=== PATIENT | female | born 1950 | race Caucasian/White ===

== ENCOUNTER 2016-05-15 11:36 | Emergency (ER) | payer MEDICARE, BC ==
[2016-05-15] MEDS ORDERED: HYDROcodone 10MG/APAP 325MG 1 EA TAB PO ONE (12:08)
[2016-05-15] MEDS ORDERED: KETOROLAC TROMETHAMINE INJ 60 MG/2 ML VIAL IM ONE (12:08)
--- NOTE | 2016-05-15 12:55 | ED.PDOC ---
History of Present Illness - General Chief Complaint: Lower Extremity Injury Stated Complaint: left hip pain Time Seen by Provider: 05/15/16 12:04 Source: patient Exam Limitations: no limitations - History of Present Illness Initial Comments: PT REPORTS SUDDEN ONSET OF L HIP PAIN UPON STANDING UP FROM A CHAIR YESTERDAY. PT REPORTS SHE IMMEDIATELY SAT BACK DOWN AND STOOD UP SLOWLY. PAIN HAD RESOLVED , HOWEVER IT BEGAN TO RETURN THROUGHOUT THE EVENING. PT REPORTS TAKING NORCO AT HOME LAST NIGHT. DENIES ANY SWELLING OR PAIN OF CALF OR THIGH. Occurred: yesterday Pain - Lower Extremity: moderate: Left Thigh/Hip Method of Injury: other - STANDING UP Improving Factors: rest Worsening Factors: movement Allergies/Adverse Reactions: Allergies Cephalexin [From Keflex] Allergy (Verified 05/15/16 11:53) Levofloxacin [From Levaquin] Allergy (Verified 05/15/16 11:53) Sulfamethoxazole w/Trimethoprim [From Bactrim] Allergy (Verified 05/15/16 11:53) Tramadol [From Ultram] Allergy (Verified 05/15/16 11:53) Home Medications: Ambulatory Orders Celecoxib [CeleBREX] 200 mg PO DAILY 05/15/16 Cholecalciferol [Vitamin D3] 5,000 unit PO DAILY 05/15/16 Eletriptan Hydrobromide [Relpax] 20 mg PO PRN 05/15/16 Fiber [Advanced Fiber Complex/AC] 3 cap PO BEDTIME 05/15/16 HYDROcodone 5MG/APAP 325MG [Wellman 5/325] 0.5 tab PO Q6H PRN 05/15/16 Magnesium 250 mg PO BEDTIME 05/15/16 Metaxalone 400 mg PO PRN 05/15/16 Niacin [Niacin ER] 500 mg PO BID 05/15/16 Oxcarbazepine [Trileptal] 150 mg PO BID 05/15/16 Valsartan 160 mg PO DAILY 05/15/16 amLODIPine BESYLATE [Norvasc] 5 mg PO BEDTIME 05/15/16 Review of Systems - Review of Systems Constitutional: States: chills, fever EENTM: States: no symptoms reported Respiratory: States: cough, short of breath Cardiology: States: chest pain, palpitations Gastrointestinal/Abdominal: States: no symptoms reported Genitourinary: States: no symptoms reported Musculoskeletal: States: joint pain Skin: Denies: change in color, lesions Hematologic/Lymphatic: Denies: blood clots, easy bruising Past Medical History (General) - Patient Medical History Hx Hypertension: Yes Hx Other - free text: ARTHRITIS, CHRONIC KNEE, BACK PAIN - Vaccination History Hx Influenza Vaccination: Yes Hx Pneumococcal Vaccination: Yes - Social History Hx Tobacco Use: No Family Medical History - Family History Mother Family History: Unknown Living Status: Unknown Physical Exam - Physical Exam General Appearance: Alert, No apparent distress Eyes, Ears, Nose, Throat: PERRL/EOMI, normal ENT inspection Thigh/Hip: normal inspection, non-tender, normal ROM Leg: normal inspection, non-tender Knee: normal inspection, non-tender Ankle: normal inspection, non-tender Foot: normal inspection, non-tender Neuro/Tendon: normal sensation Mental Status: alert, oriented x 3 Skin: normal color, warm/dry Progress - Progress Progress: 05/15/16 13:40 PT REPORTS SIGNIFICANT IMPROVEMENT IN PAIN AFTER IM TORADOL AND NORCO. XRAY FINDINGS REVIEWED WITH PT. BASED ON CLINICAL PRESENTATION I SUSPECT L HIP SPRAIN. PT WILL FOLLOW UP WITH PCP AND TAKE PAIN MEDS PRESCRIBED. Departure - Departure Clinical Impression: Sprain of hip Time of Disposition: 13:42 Disposition: Discharge to Home or Self Care Condition: Good Departure Forms: ED Discharge - Pt. Copy, Patient Portal Self Enrollment Instructions: Help for Hip Pain Diet: resume usual diet Referrals: Roberth Zaidi MD [Primary Care Provider] - 1-2 Weeks Home Medications: Ambulatory Orders Celecoxib [CeleBREX] 200 mg PO DAILY 05/15/16 Cholecalciferol [Vitamin D3] 5,000 unit PO DAILY 05/15/16 Eletriptan Hydrobromide [Relpax] 20 mg PO PRN 05/15/16 Fiber [Advanced Fiber Complex/AC] 3 cap PO BEDTIME 05/15/16 HYDROcodone 5MG/APAP 325MG [Wellman 5/325] 0.5 tab PO Q6H PRN 05/15/16 Magnesium 250 mg PO BEDTIME 05/15/16 Metaxalone 400 mg PO PRN 05/15/16 Niacin [Niacin ER] 500 mg PO BID 05/15/16 Oxcarbazepine [Trileptal] 150 mg PO BID 05/15/16 Valsartan 160 mg PO DAILY 05/15/16 amLODIPine BESYLATE [Norvasc] 5 mg PO BEDTIME 05/15/16
--- NOTE | 2016-05-15 13:22 | RAD ---
EXAM DESCRIPTION: XR HIP 2 OR MORE VIEWS CLINICAL HISTORY: L HIP PAIN COMPARISON: None Available. TECHNIQUE: AP/frog leg lateral FINDINGS: There is no bone, joint, or soft tissue abnormality. IMPRESSION: Normal left hip Electronically signed by: Conrado Monae MD 05/15/2016 13:21
--- NOTE | 2016-05-15 13:23 | RAD ---
EXAM DESCRIPTION: XR PELVIS 1-2 VIEWS CLINICAL HISTORY: LEFT HIP PAIN COMPARISON: None Available. TECHNIQUE: AP pelvis FINDINGS: There is no bone, joint, or soft tissue abnormality. IMPRESSION: Normal pelvis Electronically signed by: Conrado Monae MD 05/15/2016 13:22
[2016-05-15 13:54] VITALS: BP 133/63; TEMP 97.1; O2SAT 98
== END 2016-05-15 13:52 | disposition home or self-care (01) ==
LOC: ER 11:36
DX: S73.109A Unspecified sprain of unspecified hip, initial encounter (principal); I10 Essential (primary) hypertension; G89.29 Other chronic pain; M54.9 Dorsalgia, unspecified; M25.569 Pain in unspecified knee; M19.90 Unspecified osteoarthritis, unspecified site; Z88.2 Allergy status to sulfonamides; Z88.6 Allergy status to analgesic agent; Z88.3 Allergy status to other anti-infective agents; Z79.899 Other long term (current) drug therapy; X58.XXXA Exposure to other specified factors, initial encounter
CPT/HCPCS: 72170; 73502; J1885

== ENCOUNTER → 2016-06-13 | Outpatient (CLI) | payer MEDICARE, BC ==
--- NOTE | 2016-06-15 11:36 | MRI ---
EXAM DESCRIPTION: MR LUMBAR SPINE WITHOUT IV CONTRAST CLINICAL HISTORY: 66 y/o F, SPINAL STENOSIS COMPARISON: September 13, 2015 TECHNIQUE: Multi planar, multi sequence imaging of the lumbar spine was acquired without IV contrast. FINDINGS: There is grade 1 anterolisthesis of L2 on L3 and L3 on L4. Disc desiccation noted at all levels with intervertebral disc height loss at all levels except L5-S1. The conus terminates at L1-L2. It appears unremarkable. L1-L2: Circumferential 3 mm disc bulge. Facet degeneration noted. No spinal canal or neural foraminal narrowing. L2-3: Moderate facet degeneration, ligamentum flavum thickening and a 4 mm circumferential disk osteophyte complex. The midline diameter of spinal canal is narrowed to 7.7 mm. Bilateral neural foramen are mildly narrowed. L3-4: Facet degeneration, ligamentum flavum thickening and unroofing of the intervertebral disc are noted. The AP diameter spinal canal is moderately stenotic at 7 mm. Mild bilateral neural foraminal narrowing noted. L4-5: Facet degeneration, ligamentum flavum thickening and a 3 mm circumferential disk osteophyte complex. The midline diameter of the spinal canal is adequate at 12 mm. Bilateral neural foramen are mildly narrowed. L5-S1: Mild facet degeneration. The midline diameter of the spinal canal is widely patent measuring 1.6 cm. Bilateral neural foramen are likely adequate. IMPRESSION: Today's exam demonstrates multilevel facet and disc disease. This is most pronounced at L2-3 and L3-4 in which there is moderate bilateral facet degeneration resulting in grade 1 anterolisthesis at both levels. In addition to the anterolisthesis at both levels there is moderate spinal canal narrowing. These findings are similar when compared to the prior study from 2015. Multilevel neural foraminal narrowing, but no exiting nerve root contact. Electronically signed by: Eugene Oliveira MD 06/15/2016 11:34
== END | disposition home or self-care (01) ==
LOC: MRI 13:09
PROVIDERS: ATTEND Family Medicine
DX: M48.06 Spinal stenosis, lumbar region (principal)

== ENCOUNTER → 2016-07-15 | Outpatient (CLI) | payer MEDICARE, BC | END | disposition home or self-care (01) | LOC: GMAM 10:59 | PROVIDERS: ATTEND Family Medicine | DX: I10 Essential (primary) hypertension (principal); Z01.810 Encounter for preprocedural cardiovascular examination ==

== ENCOUNTER → 2016-10-28 | Outpatient (CLI) | payer MEDICARE, BC | LOC: GMAM 18:26 | PROVIDERS: ATTEND Family Medicine | DX: R30.0 Dysuria (principal) ==

== ENCOUNTER 2016-12-22 05:45 | Day surgery (SDC) | payer MEDICARE, BC ==
[2016-12-22] MEDS ORDERED: LACTATED RINGERS 1,000 ML ONE (06:53)
[2016-12-22] MEDS ORDERED: fentaNYL CITRATE INJ 50 MCG/ML AMP ONE (08:02)
[2016-12-22] MEDS ORDERED: MIDAZOLAM INJ 5 MG/5 ML VIAL ONE (08:02)
--- NOTE | 2016-12-22 09:17 | OP ---
DATE OF PROCEDURE: 12/22/16 INDICATION: Greater than ten years since last colonoscopy and age greater than 50. POSTOPERATIVE DIAGNOSIS: 1. Colonoscopy completed to the cecum. Ileocecal valve visualized, but not cannulated, with fair prep, but adequate for visualization. 2. Occasional scattered diverticula in the sigmoid colon. 3. Otherwise, normal colonoscopy. PROCEDURE: 1. Colonoscopy. SURGEON: Roberth Zaidi MD ANESTHESIA: Per Farooq Chamberlain CRNA. COMPLICATIONS: None apparent. ESTIMATED BLOOD LOSS: None. TECHNIQUE: The patient was brought to the GI lab and laid in the left lateral decubitus position. Digital rectal exam was performed and found to be normal. The colonoscope was inserted into the rectum and slowly through to the cecum. The cecum was well visualized. The ileocecal valve was visualized, but not cannulated. There was a fairly large amount of fecal material there, but it was loose and liquidy and was suctioned with adequate visualization following extensive suctioning. The scope was then withdrawn slowly through the ascending colon into the transverse colon, all of which appeared normal, down through the descending colon, which also appeared normal. In the sigmoid colon , there were occasional diverticula, but otherwise normal. The scope was withdrawn on into the rectum. In the rectum, retroflexion was attempted, but unsuccessfully. The scope was withdrawn very slowly with very good visualization of the rectum achieved. The patient tolerated the procedure well. There were no obvious complications. The patient will return to her room where she will recover until she is cleared from an anesthesia standpoint, then she will be discharged home. She will followup with me in one week. #[id number] [facility]ITALJustin
[2016-12-22 10:25] VITALS: BP 124/71; TEMP 98.2; O2SAT 98
[2016-12-22] MEDS ORDERED: LIDOCAINE 1% 10 ML VIAL INJ ONE (12:00)
[2016-12-22] MEDS ORDERED: PROPOFOL 200 MG/20 ML VIAL IV ONE (12:00)
== END 2016-12-22 10:00 | disposition home or self-care (01) ==
LOC: AMB 05:45
PROVIDERS: ATTEND Family Medicine
DX: Z12.11 Encounter for screening for malignant neoplasm of colon (principal); K57.30 Diverticulosis of large intestine without perforation or abscess without bleeding; I10 Essential (primary) hypertension; E78.2 Mixed hyperlipidemia; M54.5 Low back pain; M85.80 Other specified disorders of bone density and structure, unspecified site; M48.06 Spinal stenosis, lumbar region; R30.0 Dysuria; R53.83 Other fatigue; I34.0 Nonrheumatic mitral (valve) insufficiency; G43.909 Migraine, unspecified, not intractable, without status migrainosus; G25.0 Essential tremor; Z88.1 Allergy status to other antibiotic agents; Z88.6 Allergy status to analgesic agent; Z88.2 Allergy status to sulfonamides; Z88.8 Allergy status to other drugs, medicaments and biological substances; Z79.899 Other long term (current) drug therapy
CPT/HCPCS: 00810; G0121; J2250; J3010; J3490; J7120

== ENCOUNTER 2017-06-16 11:08 | Emergency (ER) | payer BC, MEDICARE ==
--- NOTE | 2017-06-16 11:31 | ED.PDOC ---
History of Present Illness - General Chief Complaint: Chest Pain/AR Stated Complaint: chest pain Time Seen by Provider: 06/16/17 11:30 Source: patient Exam Limitations: no limitations - History of Present Illness Initial Comments: Antonette Chu 67 y/o female came to er with right axillary sharp chest pains that goes on to her right chest which had been constant when it started this aabout 4 hours ago not going away decide to come to ER.Stated she was treated for flu like symptoms 3 weeks ago but dry cough still lingers no fever/no chills. Timing/Duration: 4-6 hours Severity: moderate Location: other - right side Activities at Onset: rest Prior Chest Pain/Cardiac Workup: no prior chest pain Worsening Factors: nothing Nitro Today/Relief: no nitro taken today, 0.4 mg x 1 Aspirin Treatment Today: 81 mg x 4 Associated Symptoms: cough Allergies/Adverse Reactions: Allergies Cephalexin [From Keflex] Allergy (Verified 06/16/17 11:40) Levofloxacin [From Levaquin] Allergy (Verified 06/16/17 11:40) Sulfamethoxazole w/Trimethoprim [From Bactrim] Allergy (Verified 06/16/17 11:40) Home Medications: Ambulatory Orders Celecoxib [CeleBREX] 200 mg PO BEDTIME 05/15/16 Cholecalciferol [Vitamin D3] 5,000 unit PO BID 05/15/16 Fiber [Advanced Fiber Complex/AC] 2 cap PO BEDTIME 05/15/16 Metaxalone 400 mg PO PRN 05/15/16 Niacin [Niacin ER] 500 mg PO BID 05/15/16 Oxcarbazepine [Trileptal] 150 mg PO BID 05/15/16 Amlodipine Besylate 5 mg PO BEDTIME 12/19/16 Tramadol HCl [Ultram] 200 mg PO TID 12/19/16 Valsartan [Diovan] 160 mg PO DAILY 12/19/16 Review of Systems - Review of Systems Constitutional: States: no symptoms reported Respiratory: States: see HPI, cough Cardiology: States: see HPI Gastrointestinal/Abdominal: States: no symptoms reported Genitourinary: States: no symptoms reported Hematologic/Lymphatic: States: other - no blood clots All other Systems: Reviewed and Negative, No Change from Baseline Past Medical History (General) - Patient Medical History Hx Congestive Heart Failure: No Hx Hypertension: Yes Hx Diabetes: No Hx MRSA: No Surgical History: other - shoulder,back - Vaccination History Hx Influenza Vaccination: Yes Hx Pneumococcal Vaccination: Yes - Social History Hx Tobacco Use: No Hx Physical Abuse: No Hx Emotional Abuse: No Hx Suspected Abuse: No - Activities of Daily Living Patient Lives Alone: No Grooming Ability: Independent Eating (Feeding) Ability: Independent Toileting Ability: Independent Family Medical History - Family History Mother Family History: Unknown Living Status: Unknown Hx Family Hypertension: Yes - parents Hx Family Diabetes: Yes - dad Physical Exam - Physical Exam General Appearance: Alert, Comfortable, No apparent distress Eyes, Ears, Nose, Throat Exam: PERRL/EOMI, normal ENT inspection Neck: non-tender, full range of motion, supple Respiratory: chest non-tender, lungs clear, normal breath sounds, no respiratory distress Cardiovascular/Chest: normal peripheral pulses, regular rate, rhythm, no murmur Peripheral Pulses: radial,right: 2+, radial,left: 2+ Gastrointestinal/Abdominal: normal bowel sounds, non tender, soft, no organomegaly Neurologic: alert, oriented x 3 Skin Exam: normal color, warm/dry Progress - Progress Progress: 06/16/17 12:08 Last Vital Signs Temp Pulse 69 06/16/17 11:09 Resp 20 06/16/17 11:09 BP 155/94 06/16/17 11:09 Pulse Ox 98 06/16/17 11:09 - Results/Orders Results/Orders: 06/16/17 11:34 IV Care:Saline Lock per Protoc QSHIFT 06/16/17 11:45 EKG STAT 06/16/17 14:30 EKG STAT Laboratory Results - last 24 hr 06/16/17 06/16/17 06/16/17 11:56 11:56 12:17 WBC 4.3 L RBC 4.65 Hgb 13.5 Hct 40.2 MCV 86.4 MCH 29.0 MCHC 33.6 RDW 14.1 Plt Count 225 MPV 7.4 Absolute Neuts (auto) 3.20 Absolute Lymphs (auto) 0.70 L Absolute Monos (auto) 0.40 Absolute Eos (auto) 0.10 Absolute Basos (auto) 0.00 Neutrophils % 74.9 Lymphocytes % 15.2 L Monocytes % 8.2 Eosinophils % 1.2 Basophils % 0.5 PT 11.3 INR 1.000 PTT (SP) 28.3 D-Dimer, Quantitative < 200 Sodium 140 Potassium 3.7 Chloride 103 Carbon Dioxide 28 Anion Gap 12.7 BUN 16 Creatinine 0.89 BUN/Creatinine Ratio 18.0 Random Glucose 129 H Serum Osmolality 282.3 Calcium 9.8 Magnesium 2.1 Total Bilirubin 0.5 Direct Bilirubin < 0.1 Indirect Bilirubin 0.4 AST 20 ALT 17 Alkaline Phosphatase 86 Creatine Kinase 126 CK-MB (CK-2) 1.4 CK-MB (CK-2) % Not Reportable Troponin I 0.03 B-Natriuretic Peptide 84.1 Serum Total Protein 7.6 Albumin 4.5 Urine Color Yellow Urine Appearance Clear Urine pH 6.0 Ur Specific [place] 1.015 Urine Protein Negative Urine Glucose (UA) Negative Urine Ketones Negative Urine Blood Negative Urine Nitrite Negative Urine Bilirubin Negative Urine Urobilinogen 0.2 Ur Leukocyte Esterase Trace H Urine RBC 0 Urine WBC 0 Ur Epithelial Cells 1-3 Urine Bacteria 0 18 13:46 WBC RBC Hgb Hct MCV MCH MCHC RDW Plt Count MPV Absolute Neuts (auto) Absolute Lymphs (auto) Absolute Monos (auto) Absolute Eos (auto) Absolute Basos (auto) Neutrophils % Lymphocytes % Monocytes % Eosinophils % Basophils % PT INR PTT (SP) D-Dimer, Quantitative Sodium Potassium Chloride Carbon Dioxide Anion Gap BUN Creatinine BUN/Creatinine Ratio Random Glucose Serum Osmolality Calcium Magnesium Total Bilirubin Direct Bilirubin Indirect Bilirubin AST ALT Alkaline Phosphatase Creatine Kinase CK-MB (CK-2) CK-MB (CK-2) % Troponin I 0.18 H* B-Natriuretic Peptide Serum Total Protein Albumin Urine Color Urine Appearance Urine pH Ur Specific [place] Urine Protein Urine Glucose (UA) Urine Ketones Urine Blood Urine Nitrite Urine Bilirubin Urine Urobilinogen Ur Leukocyte Esterase Urine RBC Urine WBC Ur Epithelial Cells Urine Bacteria - EKG/XRAY/CT EKG: Sinus, nonspecific ST T wave Chg Comments: HR-72 - Additional EKG/XRAY/Consults EKG #2: Sinus, nonspecific ST T wave Chg Comments: HR-68 XRAY #2: chest - no acute abnormalities Departure - Departure Clinical Impression: NSTEMI (non-ST elevation myocardial infarction) Time of Disposition: 14:53 Disposition: Transfer to Hospital Departure Forms: Patient Portal Self Enrollment Referrals: Roberth Zaidi MD [Primary Care Provider] - 1-2 Weeks Home Medications: Ambulatory Orders Celecoxib [CeleBREX] 200 mg PO BEDTIME 05/15/16 Cholecalciferol [Vitamin D3] 5,000 unit PO BID 05/15/16 Fiber [Advanced Fiber Complex/AC] 2 cap PO BEDTIME 05/15/16 Metaxalone 400 mg PO PRN 05/15/16 Niacin [Niacin ER] 500 mg PO BID 05/15/16 Oxcarbazepine [Trileptal] 150 mg PO BID 05/15/16 Amlodipine Besylate 5 mg PO BEDTIME 12/19/16 Tramadol HCl [Ultram] 200 mg PO TID 12/19/16 Valsartan [Diovan] 160 mg PO DAILY 12/19/16 Transfer to Outside Facility - Transfer Information Accepting Provider:: Dr.Scott Gaby Mendez Accepting Facility: [facility] 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
[2017-06-16] MEDS ORDERED: ASPIRIN (CHEWABLE) 81 MG TAB PO ONE (11:36)
[2017-06-16] MEDS ORDERED: NITROGLYCERIN 0.4 MG 25 EA TAB SL ONE ×2 (11:36→15:00)
[2017-06-16 12:19] VITALS: O2SAT 97
--- NOTE | 2017-06-16 12:36 | RAD ---
EXAM DESCRIPTION: Chest,1 View CLINICAL HISTORY: 67 years Female, chest pain COMPARISON: November 20, 2010 TECHNIQUE: AP portable chest. FINDINGS: Lungs are clear. No consolidation. Heart normal size. IMPRESSION: Normal. Electronically signed by: Rodo Wasserman MD 06/16/2017 12:35 PM [facility]
[2017-06-16] MEDS ORDERED: ACETAMINOPHEN 325 MG TAB PO ONE (14:59)
[2017-06-16] MEDS ORDERED: ENOXAPARIN SODIUM 100 MG/ML SYG SUBCU ONE (15:07)
[2017-06-16 15:24] VITALS: BP 161/90; TEMP 98.6
== END 2017-06-16 15:40 | disposition short-term general hospital (02) ==
LOC: ER 11:08
DX: I21.4 Non-ST elevation (NSTEMI) myocardial infarction (principal); I10 Essential (primary) hypertension; Z82.49 Family history of ischemic heart disease and other diseases of the circulatory system

== ENCOUNTER → 2018-02-23 | Outpatient (CLI) | payer MEDICARE ==
--- NOTE | 2018-02-23 11:57 | US ---
Procedure: US EXTREMITY MUSCULOSKELETAL, US PELVIS Exam Date: 02/23/2018 Ordering Provider: KRISTINA NAVARRETE Clinical Indication: PELVIC pain Comparison: None Technique: Transabdominal ultrasound of the pelvis was obtained. In addition, sonographic survey of the right lower quadrant/inguinal canal was performed and client services representative images recorded. Findings: The uterus measures 5.7 x 2.8 x 3.3 cm . An anterior intramural fibroid measures 2.2 x 2.0 x 1.2 cm. A posterior intramural fibroid measures 1.3 x 0.8 x 1.2 cm. The endometrial complex measures 8 mm which is abnormally thickened. There are no discrete masses. There are 2 complex appearing avascular masses at the level of the cervix measuring 1.1 x 1.0 x 1.1 cm and 1.7 x 2.0 x 1.1 cm. The right ovary measures 1.2 x 0.8 x 1.3 cm . There are no suspicious solid or cystic masses. The left ovary measures 1.3 x 1.4 x 1.0 cm . There are no suspicious solid or cystic masses. No pelvic free fluid. There is no hernia identified in the right inguinal canal. There are no suspicious fluid collections or masses in the right inguinal canal. Impression: 1. Abnormally thickened endometrial complex without discrete mass identified. 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 2. Complex appearing masses in the cervix may represent complex nabothian cysts. 3. Fibroid uterus. 4. No hernia identified in the right inguinal canal. Electronically signed by: Bridger Contreras MD 02/23/2018 11:55 AM CDT
--- NOTE | 2018-02-23 11:57 | US ---
Procedure: US EXTREMITY MUSCULOSKELETAL, US PELVIS Exam Date: 02/23/2018 Ordering Provider: KRISTINA NAVARRETE Clinical Indication: PELVIC pain Comparison: None Technique: Transabdominal ultrasound of the pelvis was obtained. In addition, sonographic survey of the right lower quadrant/inguinal canal was performed and outside medical sales representative images recorded. Findings: The uterus measures 5.7 x 2.8 x 3.3 cm . An anterior intramural fibroid measures 2.2 x 2.0 x 1.2 cm. A posterior intramural fibroid measures 1.3 x 0.8 x 1.2 cm. The endometrial complex measures 8 mm which is abnormally thickened. There are no discrete masses. There are 2 complex appearing avascular masses at the level of the cervix measuring 1.1 x 1.0 x 1.1 cm and 1.7 x 2.0 x 1.1 cm. The right ovary measures 1.2 x 0.8 x 1.3 cm . There are no suspicious solid or cystic masses. The left ovary measures 1.3 x 1.4 x 1.0 cm . There are no suspicious solid or cystic masses. No pelvic free fluid. There is no hernia identified in the right inguinal canal. There are no suspicious fluid collections or masses in the right inguinal canal. Impression: 1. Abnormally thickened endometrial complex without discrete mass identified. 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 2. Complex appearing masses in the cervix may represent complex nabothian cysts. 3. Fibroid uterus. 4. No hernia identified in the right inguinal canal. Electronically signed by: Bridger Contreras MD 02/23/2018 11:55 AM CDT
== END ==
LOC: US 09:59
PROVIDERS: ATTEND Family Medicine
DX: R10.2 Pelvic and perineal pain (principal); R19.05 Periumbilic swelling, mass or lump; D25.9 Leiomyoma of uterus, unspecified

== ENCOUNTER 2018-07-09 10:43 | Emergency (ER) | payer MEDICARE ==
--- NOTE | 2018-07-09 11:20 | ED.PDOC ---
History of Present Illness - General Chief Complaint: Lower Extremity Injury Stated Complaint: R knee injury/swelling, bruising Time Seen by Provider: 07/09/18 11:02 Source: patient Exam Limitations: no limitations - History of Present Illness Initial Comments: Antonette Chu 68 y/o female stated that she was kicked by his cow yesterday afternoon on her right knee and got deflected to her left knee denies falling after incident but with sharp pain on weight bearing. Occurred: yesterday Pain - Lower Extremity: mild: Left Knee, moderate: Right Knee Method of Injury: other - see hpi Improving Factors: rest Worsening Factors: movement Allergies/Adverse Reactions: Allergies Cephalexin [From Keflex] Allergy (Verified 06/16/17 11:40) Levofloxacin [From Levaquin] Allergy (Verified 06/16/17 11:40) Sulfamethoxazole w/Trimethoprim [From Bactrim] Allergy (Verified 06/16/17 11:40) Home Medications: Ambulatory Orders Celecoxib [CeleBREX] 200 mg PO BEDTIME 05/15/16 Cholecalciferol [Vitamin D3] 5,000 unit PO BID 05/15/16 Fiber [Advanced Fiber Complex/AC] 2 cap PO BEDTIME 05/15/16 Metaxalone 400 mg PO PRN 05/15/16 Niacin [Niacin ER] 500 mg PO BID 05/15/16 Oxcarbazepine [Trileptal] 150 mg PO BID 05/15/16 Amlodipine Besylate 5 mg PO BEDTIME 12/19/16 Tramadol HCl [Ultram] 200 mg PO TID 12/19/16 Valsartan [Diovan] 160 mg PO DAILY 12/19/16 Clindamycin HCl 300 mg PO TID 7 Days #42 cap 07/09/18 Review of Systems - Review of Systems Constitutional: States: no symptoms reported EENTM: States: no symptoms reported Respiratory: States: no symptoms reported Cardiology: States: no symptoms reported Gastrointestinal/Abdominal: States: no symptoms reported Genitourinary: States: no symptoms reported Musculoskeletal: States: see HPI Skin: States: no symptoms reported Neurological: States: no symptoms reported Past Medical History (General) - Patient Medical History Hx Congestive Heart Failure: No Hx Hypertension: Yes Hx Diabetes: No Hx MRSA: No Surgical History: other - shoulder;back - Vaccination History Hx Influenza Vaccination: Yes Hx Pneumococcal Vaccination: Yes - Social History Hx Tobacco Use: No Hx Alcohol Use: No Hx Substance Use: No Hx Substance Use Treatment: No Hx Depression: No Hx Physical Abuse: No Hx Emotional Abuse: No Hx Suspected Abuse: No Family Medical History - Family History Mother Family History: Unknown Living Status: Unknown Hx Family Hypertension: Yes - parents Hx Family Diabetes: Yes - dad Physical Exam - Physical Exam General Appearance: Alert, Comfortable, No apparent distress Eyes, Ears, Nose, Throat: normal ENT inspection Neck: non-tender, full range of motion, supple, normal inspection Cardiovascular/Respiratory: regular rate, rhythm, no M/R/G, normal peripheral pulses Gastrointestinal/Abdominal: non-tender, no organomegaly Thigh/Hip: normal inspection, non-tender, no evidence of injury Leg: normal inspection, non-tender, no evidence of injury Knee: ecchymosis - right knee;left [id number] full ROM, limited ROM - right knee, soft tissue tenderness, swelling - heamatoma Ankle: normal inspection, non-tender, no evidence of injury, normal ROM Foot: normal inspection, non-tender, no evidence of injury Mental Status: alert, oriented x 3 Skin: normal color, warm/dry Progress - Progress Progress: 07/09/18 12:35 Vital Signs - 8 hr 07/09/18 10:47 Temperature 97 F L Pulse Rate [ 72 Right Radial] Respiratory 20 Rate Blood Pressure 161/77 [Right Arm] O2 Sat by Pulse 95 Oximetry - Results/Orders Results/Orders: Discuss x ray result right knee no obvious fracture with patient - EKG/XRAY/CT XRAY: knee - right no fravture Departure - Departure Clinical Impression: Struck by cow, initial encounter, Pain and swelling of right knee Time of Disposition: 12:37 Disposition: Discharge to Home or Self Care Condition: Fair Departure Forms: ED Discharge - Pt. Copy, Patient Portal Self Enrollment Instructions: Contusion (DC) Referrals: Roberth Zaidi MD [Primary Care Provider] - 1-2 Weeks Prescriptions: Clindamycin HCl 300 mg PO TID 7 Days #42 cap Home Medications: Ambulatory Orders Celecoxib [CeleBREX] 200 mg PO BEDTIME 05/15/16 Cholecalciferol [Vitamin D3] 5,000 unit PO BID 05/15/16 Fiber [Advanced Fiber Complex/AC] 2 cap PO BEDTIME 05/15/16 Metaxalone 400 mg PO PRN 05/15/16 Niacin [Niacin ER] 500 mg PO BID 05/15/16 Oxcarbazepine [Trileptal] 150 mg PO BID 05/15/16 Amlodipine Besylate 5 mg PO BEDTIME 12/19/16 Tramadol HCl [Ultram] 200 mg PO TID 12/19/16 Valsartan [Diovan] 160 mg PO DAILY 12/19/16 Clindamycin HCl 300 mg PO TID 7 Days #42 cap 07/09/18 Additional Instructions: Continue with pain medications-Tramadol;Follow up with Dr. Garcia Orthopedist 14 July 2018
[2018-07-09] MEDS ORDERED: TETANUS,DIPHTHERIA,PERTUSSIS 1 EA SYG IM ONE (11:26)
[2018-07-09 11:30] VITALS: BP 161/77; TEMP 97; O2SAT 95
--- NOTE | 2018-07-09 12:25 | RAD ---
Procedure: XR KNEE 1-2 VIEWS Right Exam Date: 07/09/2018 Ordering Provider: Bala Gordon Clinical Indication: kicked by a cow, bruising, swelling Comparison: 05/18/2015 Findings/impression: There is no acute fracture or dislocation. Moderate joint space narrowing in the lateral compartment and mild narrowing in the medial compartment. Large suprapatellar joint effusion. Superior and inferior patellar enthesophytes. Anterior soft tissue swelling. Electronically signed by: Bridger Contreras MD 07/09/2018 12:21 PM [facility]
== END 2018-07-09 12:52 | disposition home or self-care (01) ==
LOC: ER 10:43 → EDSTATUS 10:44 → ER 12:52
DX: S80.01XA Contusion of right knee, initial encounter (principal); S80.02XA Contusion of left knee, initial encounter; I10 Essential (primary) hypertension; W55.22XA Struck by cow, initial encounter; Z23 Encounter for immunization; Z79.899 Other long term (current) drug therapy; Z88.2 Allergy status to sulfonamides; Z88.1 Allergy status to other antibiotic agents; Y99.0 Civilian activity done for income or pay; Y92.69 Other specified industrial and construction area as the place of occurrence of the external cause

== ENCOUNTER 2018-08-06 15:43 | Emergency (ER) | payer MEDICARE ==
[2018-08-06] MEDS: KETOROLAC TROMETHAMINE INJ 30 MG/ML VIAL IM ONE (16:18)
[2018-08-06 16:32] VITALS: TEMP 97.4
[2018-08-06] MEDS: SODIUM CHLORIDE 0.9% 1000ML 1,000 ML IVS ONE (16:35)
--- NOTE | 2018-08-06 17:21 | CT ---
EXAM DESCRIPTION: Abdomen t/Pelvis w/o Contrast CLINICAL HISTORY: 68 years, 68 years, Female, Female, suspect rt kidney stone COMPARISON: None. TECHNIQUE: CT of the abdomen and pelvis is performed according to our non contrast protocol This exam was performed according to our departmental dose-optimization program, which includes automated exposure control, adjustment of the mA and/or kV according to patient size and/or use of iterative reconstruction technique. FINDINGS: The lung bases are clear and no significant hiatal hernia is noted. Extensive spinal hardware in the mid and lower lumbar spine is present. The unenhanced liver and spleen and small contracted gallbladder are unremarkable with no obvious or significant abnormality of the pancreas or adrenal glands noted. The left kidney is small and normal in appearance without hydronephrosis or stone disease. The right kidney appears enlarged and moderately hydronephrotic with nonobstructing small calculi in a peripheral upper pole calyceal system and at least two locations with a small two or 3 mm obstructing calculus involving the distal right ureter with mild hydroureter evident. A portion of the proximal right ureter is obscured by the streak artifact from the spinal metallic hardware. No definite cystic or solid renal mass involving either kidney is noted. Small and large bowel caliber is normal. Within the pelvis a retroflexed uterus with an oval approximate 1.5 cm density in the uterine fundus likely a calcified uterine fibroid is noted with a subtle area of increased density in the anterior lower uterine segment likely an additional uterine fibroid. No adnexal mass or free abdominal or pelvic fluid is seen. The anterior abdominal wall and inguinal region is unremarkable. No significant pelvic sidewall disease is seen. Prior laminectomy and posterior fixation and anterior interbody graft material is evident in the lumbar spine at L2, L3, and L4. IMPRESSION: 1. Normal-appearing left kidney with enlarged hydronephrotic right kidney with hydroureter with nonobstructing upper pole small renal calculi and obstructing small two or 3 mm distal right ureteral stone with mild hydroureter to the level of the UVJ. 2. Extensive prior spinal surgery and fixation with laminectomy and posterior fusion and fixation L2, L3, and L4 with anterior interbody fusion and graft material in place. 3. Probable a partially calcified uterine fibroids in two locations. No adnexal masses noted. Electronically signed by: Roberth Gil MD 08/06/2018 5:18 PM CDT
[2018-08-06 17:26] VITALS: BP 144/87; O2SAT 99
[2018-08-06] MEDS: HYDROcodone 7.5MG/APAP 325MG 1 EA TAB PO ONE (17:37)
--- NOTE | 2018-08-06 17:50 | ED.PDOC ---
History of Present Illness - General Chief Complaint: Problem Stated Complaint: R flank discomfort Time Seen by Provider: 08/06/18 15:44 Source: patient Exam Limitations: no limitations - History of Present Illness Initial Comments: The patient is a 68-year-old female presenting to emergency room secondary to back pain on the right side. She reports the pain feels like a kidney stone that she has had before. Patient reports that she was having vague right flank pain for the last 3 days. Today around noon the pain became severe and sharp. She has been having increasing frequency without any significant output. Mild nausea but no vomiting. No diarrhea. No syncope or near syncope. Pain was severe at its worst. Severity: severe Improving Factors: nothing Worsening Factors: nothing Associated Symptoms: diaphoresis, nausea/vomiting Allergies/Adverse Reactions: Allergies Cephalexin [From Keflex] Allergy (Verified 08/06/18 16:35) Rash Levofloxacin [From Levaquin] Allergy (Verified 08/06/18 16:35) Rash Sulfamethoxazole w/Trimethoprim [From Bactrim] Allergy (Verified 08/06/18 16:35) Other Causes swollen lips and tongue Home Medications: Ambulatory Orders Celecoxib [CeleBREX] 200 mg PO BEDTIME 05/15/16 Cholecalciferol [Vitamin D3] 5,000 unit PO BID 05/15/16 Fiber [Advanced Fiber Complex/AC] 2 cap PO BEDTIME 05/15/16 Metaxalone 400 mg PO PRN 05/15/16 Oxcarbazepine [Trileptal] 150 mg PO BID 05/15/16 Amlodipine Besylate 5 mg PO BEDTIME 12/19/16 Aspirin [Aspirin Adult Low Strengt] 81 mg PO 08/06/18 Calcium [Chelated Calcium] 200 mg PO DAILY 08/06/18 Ciprofloxacin [Cipro] 500 mg PO BID 08/06/18 Eletriptan Hydrobromide 20 mg PO PRN 08/06/18 Losartan Potassium 100 mg PO DAILY 08/06/18 Tramadol HCl 50 mg PO Q8HR PRN #20 tab 08/06/18 Review of Systems - Review of Systems Constitutional: States: no symptoms reported EENTM: States: no symptoms reported Respiratory: States: no symptoms reported Cardiology: States: no symptoms reported Gastrointestinal/Abdominal: States: nausea Genitourinary: States: see HPI Musculoskeletal: States: back pain Skin: States: no symptoms reported Neurological: States: no symptoms reported Endocrine: States: no symptoms reported All other Systems: No Change from Baseline Past Medical History (General) - Patient Medical History Hx Stroke: No Hx Cardiac Disorders: Yes - Hx [place] Hx Congestive Heart Failure: No Hx Hypertension: Yes Hx Diabetes: No Hx MRSA: No Surgical History: other - Vaccination History Hx Tetanus, Diphtheria Vaccination: Yes - 07/08/18 Hx Influenza Vaccination: Yes Hx Pneumococcal Vaccination: Yes - Social History Hx Tobacco Use: No Hx Alcohol Use: No Hx Substance Use: No Hx Substance Use Treatment: No Hx Depression: No Hx Physical Abuse: No Hx Emotional Abuse: No Hx Suspected Abuse: No Family Medical History - Family History Mother Family History: Unknown Living Status: Unknown Hx Family Hypertension: Yes - parents Hx Family Diabetes: Yes - dad Physical Exam - Physical Exam General Appearance: Alert, Obvious distress Eye Exam: bilateral normal Ears, Nose, Throat: hearing grossly normal, normal ENT inspection, normal pharynx Neck: supple, normal inspection Respiratory: lungs clear, normal breath sounds, no respiratory distress, no accessory muscle use Cardiovascular/Chest: normal peripheral pulses, regular rate, rhythm, no edema Peripheral Pulses: radial,right: 2+, radial,left: 2+ Gastrointestinal/Abdominal: non tender, soft Rectal Exam: deferred Back Exam: no vertebral tenderness, CVA tenderness (R) Extremity: non-tender, normal inspection, no pedal edema, normal capillary refill 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 The patient was given a liter of IV fluids as well as some pain medications here. She will be written for tramadol for outpatient use. She needs to keep herself well-hydrated. Flomax is being avoided due to allergic potential reaction. She needs to follow up with her primary care doctor next week. ER warnings were given. Stone is 2 mm and in the very distal ureter so it is expected to pass without significant further difficulty. - Results/Orders Results/Orders: Laboratory Results - last 24 hr 08/06/18 16:12 Urine Color Yellow Urine Appearance Clear Urine pH 7.0 Ur Specific [place] >= 1.030 Urine Protein 30 Urine Glucose (UA) Negative Urine Ketones 15 H Urine Blood Trace-intact H Urine Nitrite Negative Urine Bilirubin Negative Urine Urobilinogen 0.2 Ur Leukocyte Esterase Negative Urine RBC 0-1 Urine WBC 0 Ur Epithelial Cells 3-[address] scan indicates a 2 mm obstructive stone in the right distal ureter with proximal hydronephrosis and hydroureteronephrosis Departure - Departure Clinical Impression: Calcium ureterolithiasis Disposition: Discharge to Home or Self Care Condition: Fair Departure Forms: ED Discharge - Pt. Copy, Patient Portal Self Enrollment Instructions: DI for Kidney Stones Diet: regular diet Activity: increase activity as tolerated Referrals: Roberth Zaidi MD [Primary Care Provider] - 1-2 Weeks Prescriptions: Tramadol HCl 50 mg PO Q8HR PRN #20 tab PRN Reason: Moderate Pain Home Medications: Ambulatory Orders Celecoxib [CeleBREX] 200 mg PO BEDTIME 05/15/16 Cholecalciferol [Vitamin D3] 5,000 unit PO BID 05/15/16 Fiber [Advanced Fiber Complex/AC] 2 cap PO BEDTIME 05/15/16 Metaxalone 400 mg PO PRN 05/15/16 Oxcarbazepine [Trileptal] 150 mg PO BID 05/15/16 Amlodipine Besylate 5 mg PO BEDTIME 12/19/16 Aspirin [Aspirin Adult Low Strengt] 81 mg PO 08/06/18 Calcium [Chelated Calcium] 200 mg PO DAILY 08/06/18 Ciprofloxacin [Cipro] 500 mg PO BID 08/06/18 Eletriptan Hydrobromide 20 mg PO PRN 08/06/18 Losartan Potassium 100 mg PO DAILY 08/06/18 Tramadol HCl 50 mg PO Q8HR PRN #20 tab 08/06/18 Additional Instructions: the patient is a 68-year-old female presenting secondary to ureterolithiasis and symptoms associated with it. The patient was given a liter of IV fluids as well as some pain medications here. She will be written for tramadol for outpatient use. She needs to keep herself well-hydrated. Flomax is being avoided due to allergic potential reaction. She needs to follow up with her primary care doctor next week. ER warnings were given. Stone is 2 mm and in the very distal ureter so it is expected to pass without significant further difficulty.
== END 2018-08-06 18:03 | disposition home or self-care (01) ==
LOC: ER 15:43
DX: N13.2 Hydronephrosis with renal and ureteral calculous obstruction (principal); I25.2 Old myocardial infarction; I10 Essential (primary) hypertension; Z79.82 Long term (current) use of aspirin; Z79.899 Other long term (current) drug therapy; Z88.1 Allergy status to other antibiotic agents; Z88.2 Allergy status to sulfonamides
CPT/HCPCS: 74176; 81001; J1885; J7030

== ENCOUNTER 2018-11-03 05:36 | Inpatient (IN) | payer MEDICARE ==
--- NOTE | 2018-11-02 08:16 | HP ---
CHIEF COMPLAINT: Right knee pain. HISTORY OF PRESENT ILLNESS: Ms. Chu is a 68-year-old female with a history of pain in the right knee. She has also noticed a valgus deformity to the knee. Because of her pain and worsening deformity, we have been trying to treat her conservatively. Unfortunately, she has not had any relief. Because of her continued pain and difficulty with activities, she has requested operative intervention. After discussing the risks, benefits and alternatives to that, she has given informed consent. PAST SURGICAL HISTORY: None. MEDICATIONS: 1. Amlodipine. 2. Celebrex. 3. Losartan. 4. Tramadol. 5. Trileptal. 6. Relpax. ALLERGIES: SHE SAYS SHE IS ALLERGIC TO SOME ANTIBIOTICS, BUT IS UNSURE OF ALL OF THEM. CODE STATUS: Full code. IMMUNIZATIONS: Up to date. SOCIAL HISTORY: The patient does not drink, smoke or use any illicit drugs. FAMILY HISTORY: None pertinent to today's complaint. REVIEW OF SYSTEMS: Negative except as indicated in the History of Present Illness. PHYSICAL EXAMINATION: VITAL SIGNS: Blood pressure 128/79. Pulse 72. Height 5'7". Weight 114 pounds. MENTAL STATUS: The patient is awake, alert, and is able to give a good history and participate in the physical. The patient is oriented to person, place and time. SKIN: Normal tone and turgor. HEENT: Normocephalic, atraumatic. Pupils equal, round and reactive. Mucosal membranes are moist. NECK: Normal range of motion. No thyromegaly, no lymphadenopathy. CHEST: Normal respiratory excursion. CARDIAC: Regular rate and rhythm. No murmurs, rubs or gallops. MUSCULOSKELETAL: The bilateral upper extremities show full active range of motion. She has intact sensation. They are warm and well perfused. She has no deformity and no crepitus. Strength is 5/5. The left lower extremity shows full range of motion. She has intact sensation. There is no deformity or crepitus. She has full range of motion of the hip. Strength is 5/5 throughout. The right lower extremity shows full range of motion in the hip. She lacks a couple of degrees of extension of the knee and flexion is to about 115 degrees right now. She has a slight valgus malalignment. She is very tender over the knee with a moderate effusion. She has pain with patellar mobilization and with range of motion. She has crepitus with range of motion. She has no significant laxity varus/valgus or anterior/posterior stress testing. IMAGING: X-rays show severe arthritis. ASSESSMENT: 1. Arthritis. PLAN: The plan at this point is for total knee arthroplasty. We have discussed the risks, benefits, and alternatives to that and the patient has given informed consent. [facility][id number] [facility]
[2018-11-03] MEDS ORDERED: TRANEXAMIC ACID 1,000 MG/10 ML VIAL ONE ×2 (05:53→05:54)
[2018-11-03] MEDS ORDERED: SODIUM CHLORIDE 0.9% 250ML 250 ML ONE ×2 (05:53→17:10)
[2018-11-03] MEDS ORDERED: VANCOMYCIN HCL INJ 1,000 MG VIAL IVPB ONE ×2 (05:53→17:11)
[2018-11-03] MEDS ORDERED: SODIUM CHLORIDE 0.9% 100ML 100 ML IVPB ONE (05:53)
[2018-11-03] MEDS ORDERED: SODIUM CHL 0.9% 100ML MINI-BAG 0 ML IVPB ONE (05:53)
[2018-11-03] MEDS ORDERED: ceFAZolin SODIUM 1 GM VIAL ONE ×3 (05:53→06:36)
[2018-11-03] MEDS ORDERED: LACTATED RINGERS 1,000 ML ONE (05:53)
[2018-11-03] MEDS ORDERED: SCOPOLAMINE PATCH 1.5MG 1 EA TD ONE (05:57)
[2018-11-03] MEDS ORDERED: MIDAZOLAM INJ 5 MG/5 ML VIAL ONE (06:31)
[2018-11-03] MEDS ORDERED: ACETAMINOPHEN IV 1000MG 100 ML ONE (06:37)
[2018-11-03] MEDS ORDERED: BUPIVACAINE 0.5% 30 ML VIAL INJ ONE (06:37)
[2018-11-03] MEDS ORDERED: MORPHINE SULFATE *EPIDURAL* 0.5 MG/ML VIAL ONE (06:37)
[2018-11-03] MEDS ORDERED: fentaNYL CITRATE INJ 50 MCG/ML AMP ONE (06:38)
[2018-11-03] MEDS ORDERED: KETAMINE HCL 100 MG/ML VIAL ONE (06:42)
[2018-11-03] MEDS ORDERED: CLINDAMYCIN IV 900MG 50 ML IVPB ONE ×4 (06:45→19:02)
[2018-11-03] MEDS ORDERED: ACETAMINOPHEN 500 MG TAB PO PRN (07:10)
[2018-11-03] MEDS ORDERED: TEMAZEPAM 15 MG CAP PO PRN (07:10)
[2018-11-03] MEDS ORDERED: PROMETHAZINE HCL INJ 12.5 MG in SODIUM CHLORIDE 0.9% 50ML 50 ML IVPB PRN (07:10)
[2018-11-03] MEDS ORDERED: PROMETHAZINE HCL INJ 25 MG in SODIUM CHLORIDE 0.9% 50ML 50 ML IVPB PRN (07:10)
[2018-11-03] MEDS ORDERED: DEX 5% W/NACL 0.45% 1000ML 1,000 ML IVS PRN (07:10)
[2018-11-03] MEDS ORDERED: NALOXONE HCL INJ 0.4 MG/ML VIAL IV PRN (07:10)
[2018-11-03] MEDS ORDERED: MORPHINE SULFATE INJ 10 MG/ML VIAL IM PRN (07:10)
[2018-11-03] MEDS ORDERED: BISACODYL SUPPOSITORY 10 MG PR PRN (07:10)
[2018-11-03] MEDS ORDERED: MAGNESIUM HYDROXIDE 30 ML UD PO PRN (07:10)
[2018-11-03] MEDS ORDERED: ONDANSETRON INJ 4 MG/2 ML VIAL IV PRN (07:10)
[2018-11-03] MEDS ORDERED: ALUMINUM & MAGNESIUM HYDROXIDE 30 ML UD PO PRN (07:10)
[2018-11-03] MEDS ORDERED: SODIUM CHLORIDE 0.9% (FLUSH) 10 ML SYG IV PRN (07:10)
[2018-11-03] MEDS ORDERED: traMADol HCL 50 MG TAB PO PRN (07:10)
[2018-11-03] MEDS ORDERED: ZOLPIDEM TARTRATE 5 MG TAB PO PRN (07:10)
[2018-11-03] MEDS ORDERED: ACETAMINOPHEN 325 MG TAB PO PRN (07:10)
[2018-11-03] MEDS ORDERED: TRANEXAMIC ACID INJ 1,000 MG in SODIUM CHLORIDE 0.9% 100ML 100 ML IVPB ONE (07:10)
[2018-11-03] MEDS ORDERED: BENZOCAINE-MENTH LOZ (CEPACOL) 1 EA LOZ MT PRN (07:10)
[2018-11-03] MEDS ORDERED: MORPHINE SULFATE INJ 10 MG/ML VIAL IV PRN (07:10)
[2018-11-03] MEDS ORDERED: MORPHINE PCA 1 MG/ML 100 ML BAG IVPB SCH (07:30)
[2018-11-03] MEDS: BUPIVACAINE 0.5% 30 ML VIAL INJ ONE ×2 (07:55→08:38)
[2018-11-03] MEDS: BUPIVACAINE LIPOSOME 13.3 MG/ML VIAL INJ ONE ×2 (07:56→08:39)
[2018-11-03] MEDS: VANCOMYCIN HCL INJ 1,000 MG VIAL IVPB ONE ×2 (07:56→08:40)
[2018-11-03] MEDS ORDERED: ELECTROLYTE-A 1,000 ML IVS ONE (08:47)
--- NOTE | 2018-11-03 09:20 | RAD ---
EXAM DESCRIPTION: Lumbar Spine 3 Views CLINICAL HISTORY: 68 years Female, pre op back pain COMPARISON: MRI June 13, 2016 FINDINGS: 3 views of the lumbar spine show bilateral pedicle screw and vertical braden fixation from L2 through L4. Anterior interbody implant devices are seen in place. No hardware failure or obvious loosening. Mild curvature of the upper lumbar spine with convexity towards the left. Vertebral body heights are maintained. Osseous structures are diffusely osteopenic. Patient is mildly rotated on lateral projections limiting evaluation. IMPRESSION: Posterior hardware fixation with anterior interbody implants from L2 through L4 are seen without complicating features. Mild levocurvature of the upper lumbar spine. Electronically signed by: [place] V[place] MD 11/03/2018 9:18 AM CDT
[2018-11-03] MEDS ORDERED: METOCLOPRAMIDE HCL INJ 10 MG/2 ML VIAL IV ONE (10:00)
[2018-11-03] MEDS ORDERED: raNITIdine HCL INJ 25 MG/ML VIAL IV ONE (10:00)
[2018-11-03] MEDS ORDERED: PROPOFOL 200 MG/20 ML VIAL IV ONE (10:00)
[2018-11-03] MEDS ORDERED: DEXAMETHASONE INJ 10 MG/ML VIAL IV ONE (10:00)
[2018-11-03] MEDS ORDERED: ePHEDrine SULF 50 MG/ML IV ONE (10:00)
--- NOTE | 2018-11-03 14:40 | RAD ---
Frontal and lateral views of the right knee. Indication: TKA Impression: Postsurgical changes of right total knee arthroplasty and patellar resurfacing noted with associated postsurgical changes of the soft tissues. No complicating features identified. Electronically signed by: Ambrosio Gomez MD 11/03/2018 2:38 PM CDT
--- NOTE | 2018-11-03 14:41 | RAD ---
Intraoperative view of the right knee Indication: RIGHT TKA Comparison: None. Impression: Right total knee arthroplasty noted. 1 images submitted. Fluoroscopy time 2 seconds Electronically signed by: Ambrosio Gomez MD 11/03/2018 2:38 PM CDT
[2018-11-03] MEDS: CELECOXIB 100 MG CAP PO SCH ×2 (14:43→17:33)
[2018-11-03] MEDS: CLINDAMYCIN IV 900MG 900 MG in PREMIX BAG 1 BAG IVPB SCH ×3 (14:44→22:48)
[2018-11-03] MEDS: IV SET AND CAP CHANGE INJ INJ SCH (14:44)
[2018-11-03] MEDS: MAGNESIUM OXIDE 400 MG TAB PO SCH (14:45)
--- NOTE | 2018-11-03 15:09 | CONS ---
DATE OF CONSULTATION: 11/03/18 SUPERVISING PHYSICIAN: Adrian Burnett MD REASON FOR CONSULTATION: Medical management. HISTORY OF PRESENT ILLNESS: Ms. Chu is a 68-year-old female patient. She was admitted this morning for elective right total knee arthroplasty. She had a significant valgus deformity of the knee and was having a significant amount of pain due to the deformity. She tried multiple attempts at conservative treatment as an outpatient, but unfortunately did not receive any significant relief. Due to the ongoing and pain and deformity, she requested operative intervention with an elective right total knee arthroplasty. She was admitted and had no intraoperative complications. I am seeing her in the postoperative state in section. PAST MEDICAL HISTORY: 1. Hypertension. 2. Coronary artery disease with previous myocardial infarction in 2018. 3. Benign essential tremors. 4. Migraine headaches. 5. Hyperlipidemia. 6. Gastroesophageal reflux disease. PAST SURGICAL HISTORY: 1. Ablation in 2000. 2. Fusion of L2 to L4 disc with titanium disc replacement. 3. Left middle finger partial amputation. 4. Left shoulder surgery. 5. Previous cardiac cath at [facility] in June 2017. HOME MEDICATIONS: 1. Trileptal 150 mg b.i.d. 2. Losartan 100 mg b.i.d. 3. Vitamin D3 5000 units daily. 4. Stool softener 250 mg at bedtime. 5. Calcium 400 mg b.i.d. 6. Amlodipine 5 mg at bedtime. 7. Metaxalone 800 mg as needed. 8. Celebrex 200 mg at bedtime. 9. Aspirin adult strength 81 mg daily. 10. Tramadol 50 mg q.8h. as needed. 11. Eletriptan hydrobromide 40 mg as needed. ALLERGIES: MULTIPLE ALLERGIES TO ANTIBIOTICS INCLUDING BACTRIM, DOXYCYCLINE, KEFLEX, LEVAQUIN. ALSO PLEGIC, PHENERGAN, SULFONAMIDES, ULTRAM, ZYVOX. FAMILY HISTORY: Father has a history of hypertension, peripheral vascular disease, type 2 diabetes mellitus, recurrent myocardial infarctions at age 91. Mother is currently alive at age 87. She has a history of hypertension. She has one sister who has diabetes, one son has allergies. Grandmother had breast cancer, an uncle with stomach cancer. SOCIAL HISTORY: The patient lives in [place], [place]. 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 She does not drink alcohol, does not smoke tobacco or use illicit drugs. PHYSICAL EXAMINATION: VITAL SIGNS: Temperature 96.9. Pulse 54. Blood pressure 122/66. Respirations 13. Saturation 100% on room air. Admission weight 53 kg. GENERAL: The patient is resting comfortable. She has Iceman in place. She appears to be in no acute distress. She is alert. HEENT: Tympanic membranes clear bilaterally. Oropharynx is pink, moist without any lesions. NECK: Supple, nontender with full range of motion. No jugular venous distention noted. RESPIRATORY: Lungs clear to auscultation bilaterally without any rhonchi, wheezes or rales. CARDIOVASCULAR: Regular rate and rhythm without any appreciable murmurs, gallops, or rubs. ABDOMEN: Soft, nontender. Positive bowel sounds. EXTREMITIES: Bilateral pulses 2+. Iceman is in place on the right knee. Capillary refill distal to right knee is strong without any reported paresthesias. NEUROLOGIC: The patient is alert and oriented times three. LABORATORY: Postoperative hemoglobin and hematocrit pending. Preoperative drug screen was negative for all substances tested. RADIOLOGY: No additional radiographic studies. ASSESSMENT: 1. Severe osteoarthritis with a valgus deformity requiring elective surgery with a right total knee arthroplasty performed by Dr. Hermann Garcia, immediate postoperative day 0. 2. History of hypertension. 3. History of peripheral vascular disease. 4. History of chronic gastroesophageal reflux disease. 5. Degenerative disc disease and chronic back pain. 6. Migraine headaches. 7. Benign essential tremors. PLAN: We will follow the patient as she progresses through her physical therapy and rehabilitation efforts. We will defer orthopedic management to Dr. Garcia. We will review her medications and resume those as appropriate once they are verified. She will be on DVT prophylaxis per protocol. We will anticipate length of stay to be 2 to 3 days with anticipation of discharging possibly Thursday. At this point, discharge planning [facility]. Until she can transition to outpatient management, we will continue to monitor and treat as needed. [facility][id number] [facility]
[2018-11-03] MEDS ORDERED: diphenhydrAMINE HCL 50 MG/ML VIAL ONE (15:28)
[2018-11-03] MEDS ORDERED: diphenhydrAMINE HCL 50 MG/ML VIAL IV ONE (15:32)
[2018-11-03] MEDS: VANCOMYCIN HCL INJ 1,000 MG in SODIUM CHLORIDE 0.9% 250ML 250 ML IVPB SCH (17:32)
[2018-11-03] MEDS ORDERED: ENOXAPARIN SODIUM 30 MG/0.3 ML SYG SUBCU ONE (19:01)
[2018-11-03] MEDS ORDERED: OXcarbazepine 300 MG TAB PO ONE (19:51)
[2018-11-03] MEDS ORDERED: METAXALONE 800 MG PO SCH (20:00)
[2018-11-03] MEDS ORDERED: ELETRIPTAN HYDROBROMIDE 40 MG PO SCH (20:00)
[2018-11-03] MEDS: DOCUSATE CALCIUM 240 MG CAP PO SCH (20:24)
[2018-11-03] MEDS: amLODIPine BESYLATE 5 MG TAB PO SCH (20:24)
[2018-11-03] MEDS ORDERED: DOCUSATE SODIUM 250 MG PO SCH (21:00)
[2018-11-03] MEDS ORDERED: CALCIUM PO SCH (21:00)
[2018-11-03] MEDS ORDERED: NON-FORMULARY MEDICATION 1 EA MIS (Oxcarbazepine [Trileptal] 150 MG) PO SCH (21:00)
[2018-11-03] MEDS: ENOXAPARIN SODIUM 30 MG/0.3 ML SYG SUBCU SCH (22:48)
[2018-11-03] MEDS: CYCLOBENZAPRINE HCL 10 MG TAB PO PRN (22:53)
[2018-11-04] MEDS: HYDROcodone 5MG/APAP 325MG 1 EA TAB PO PRN ×3 (02:21→18:29)
[2018-11-04] MEDS ORDERED: SODIUM CHLORIDE 0.9% 250ML 250 ML ONE (05:10)
[2018-11-04] MEDS ORDERED: VANCOMYCIN HCL INJ 1,000 MG VIAL IVPB ONE (05:10)
[2018-11-04] MEDS: VANCOMYCIN HCL INJ 1,000 MG in SODIUM CHLORIDE 0.9% 250ML 250 ML IVPB SCH (05:45)
[2018-11-04] MEDS: CELECOXIB 100 MG CAP PO SCH ×2 (07:26→16:58)
--- NOTE | 2018-11-04 08:36 | PN ---
DATE: 11/03/18 POSTOPERATIVE CHECK SUBJECTIVE: Ms. Chu is doing well and resting. OBJECTIVE: Afebrile. Vital signs stable. Dressing is clean, dry and intact. ASSESSMENT: Status post total knee arthroplasty. PLAN: The plan at this point is to begin weightbearing as tolerated on postoperative day 1. #[id number] [facility]
--- NOTE | 2018-11-04 08:37 | PN ---
DATE: 11/04/18 SUBJECTIVE: Ms. Chu is doing well and her pain is well controlled. OBJECTIVE: Afebrile. Vital signs stable. Dressing is clean, dry and intact. ASSESSMENT: Status post total knee arthroplasty. PLAN: The plan at this point is for her to begin weightbearing as tolerated today. #[id number] [facility]
--- NOTE | 2018-11-04 08:42 | OP ---
DATE OF PROCEDURE: 11/03/18 PREOPERATIVE DIAGNOSIS: 1. Osteoarthritis of the right knee. POSTOPERATIVE DIAGNOSIS: 1. Osteoarthritis of the right knee. PROCEDURE: 1. Total knee arthroplasty. SURGEON: Hermann Garcia MD. DAMAGE ASSESSOR: Jhonatan Gongora CST, SA-C. ANESTHESIA: General anesthesia. COMPLICATIONS: None. FINDINGS: Severe osteoarthritis with valgus deformity. INDICATION: Ms. Chu has a history of pain in the knee that is secondary to osteoarthritis. She has been unable to get relief with any conservative measures. Because of that, she has requested operative intervention. After discussing the risks, benefits and alternatives to that, the patient has given informed consent for total knee arthroplasty. PROCEDURE: The patient was brought to the Operating Room and placed in supine position. General anesthesia was induced and the patient's leg was sterilely prepped and draped. Following prepping and draping, the distal femur was exposed and using an intramedullary guide, the distal femoral cut was made. The appropriate sized cutting block was measured, pinned into place, and the anterior, posterior, and chamfer cuts were made. The ACL was transected and the tibia was subluxed. Both the medial and lateral menisci were removed. An intramedullary guide was used to make the proximal tibial cut. The appropriate sized base plate was placed and a trial polyethylene was placed. The trial femur was placed, the knee was reduced, and the knee was taken through a range of motion. The knee was stable in anterior, posterior, varus and valgus stress. The patella tracked anatomically without evidence of subluxation or dislocation. After trialing, the trial components were removed and the bony surfaces were thoroughly irrigated with saline. Following irrigation, the surfaces were dried and the final components were cemented into place. The excess cement was removed and the remaining cement was allowed to cure. The knee was again taken through a range of motion to confirm stability. The wound was then irrigated with saline and closure was performed using PDS to approximate the arthrotomy followed by closure of the subcutaneous tissues with a combination of running and interrupted Monocryl sutures. Sterile dressing was placed. The patient was awoken from anesthesia and taken to Recovery. POSTOPERATIVE PLAN: The patient will be weight-bearing as tolerated on postoperative day 1. COMPONENTS: Elastra Triathlon knee, size 3 femur, size 3 tibia, 9 mm insert. #[id number] [facility]
[2018-11-04] MEDS: OXcarbazepine 300 MG TAB PO SCH ×2 (09:28→20:25)
[2018-11-04] MEDS: MAGNESIUM OXIDE 400 MG TAB PO SCH (09:29)
[2018-11-04] MEDS: CALCIUM CARBONATE (ANTACID) 500 MG CHEWABLE TAB PO SCH ×2 (09:29→20:24)
[2018-11-04] MEDS: LOSARTAN POTASSIUM 100 MG TAB PO SCH (09:29)
[2018-11-04] MEDS: ASPIRIN (ENTERIC COATED) 81 MG TAB PO SCH (09:31)
[2018-11-04] MEDS: ENOXAPARIN SODIUM 30 MG/0.3 ML SYG SUBCU SCH ×2 (11:07→23:52)
[2018-11-04] MEDS: CYCLOBENZAPRINE HCL 10 MG TAB PO PRN (11:07)
--- NOTE | 2018-11-04 13:34 | PN ---
SUPERVISING PHYSICIAN: Adrian Burnett MD DATE: 11/04/18 SUBJECTIVE: The patient is in the bedside chair today with breakfast. She notes her pain has been fairly well controlled. She has had no nausea or vomiting or other complaints. OBJECTIVE: VITAL SIGNS: Temperature 97. Pulse 55. Blood pressure 118/72. Respirations 14. Saturation 94% on room air. I&Os show negative balance of 640. Weight 53.0 kg. CHEST: Lungs clear to auscultation. HEART: Regular rate and rhythm. ABDOMEN: Soft, nontender. Positive bowel sounds. EXTREMITIES: Right knee has a large dressing in place. No signs of drainage. Distally, pulses are strong. Capillary refills brisk. NEUROLOGIC: Alert and oriented times three. LABORATORY: Postoperative hemoglobin 11.7, hematocrit 35.1. ASSESSMENT: 1. Severe osteoarthritis with a valgus deformity requiring elective surgery with a right total knee arthroplasty performed by Dr. Hermann Garcia, immediate postoperative day 1. 2. History of hypertension. 3. History of peripheral vascular disease. 4. History of chronic gastroesophageal reflux disease. 5. Degenerative disc disease and chronic back pain. 6. Migraine headaches. 7. Benign essential tremors. PLAN: I will continue to follow the patient as she progresses through her physical therapy and rehabilitation efforts anticipating discharge this coming Thursday [facility]. I resumed her home medications. We will continue to follow the patient as needed, deferring orthopedic management to Dr. Garcia. Until she can discharge to outpatient management, we will continue to monitor and treat as needed. [facility][id number] [facility]
[2018-11-04] MEDS: DOCUSATE SODIUM 100 MG CAP PO SCH (20:24)
[2018-11-04] MEDS: DOCUSATE CALCIUM 240 MG CAP PO SCH (20:24)
[2018-11-04] MEDS: amLODIPine BESYLATE 5 MG TAB PO SCH (20:25)
[2018-11-05] MEDS: CELECOXIB 100 MG CAP PO SCH ×2 (07:20→17:40)
[2018-11-05] MEDS: SODIUM CHLORIDE 0.9% (FLUSH) 10 ML SYG IV SCH ×2 (08:49→20:33)
[2018-11-05] MEDS: ASPIRIN (ENTERIC COATED) 81 MG TAB PO SCH (08:49)
[2018-11-05] MEDS: OXcarbazepine 300 MG TAB PO SCH ×2 (08:49→20:32)
[2018-11-05] MEDS: CALCIUM CARBONATE (ANTACID) 500 MG CHEWABLE TAB PO SCH ×2 (08:49→20:32)
[2018-11-05] MEDS: LOSARTAN POTASSIUM 100 MG TAB PO SCH (08:49)
[2018-11-05] MEDS: MAGNESIUM OXIDE 400 MG TAB PO SCH (08:49)
[2018-11-05] MEDS: HYDROcodone 5MG/APAP 325MG 1 EA TAB PO PRN ×3 (08:51→20:33)
[2018-11-05] MEDS: ENOXAPARIN SODIUM 30 MG/0.3 ML SYG SUBCU SCH ×2 (12:03→23:25)
--- NOTE | 2018-11-05 16:39 | PN ---
DATE: 11/05/18 SUPERVISING PHYSICIAN: Adrian Burnett M.D. SUBJECTIVE: The patient is lying in bed. She has the CPM machine on her right knee. Denies shortness of breath, nausea, vomiting, diarrhea or chest pain. She does complain of having a difficult time sleeping, although she says she does not sleep well most of the time anyway. I encouraged her to ask for her sleeping medication if needed. Otherwise she feels like her therapy is going well and wants to do outpatient therapy after discharge. OBJECTIVE: VITAL SIGNS: Temperature 98.8, heart rate 76, blood pressure 114/73, respiratory rate 16, O2 sat 96% on room air. RESPIRATORY: Essentially clear to auscultation bilaterally . CARDIAC: Regular rate and rhythm. GASTROINTESTINAL: Abdomen is soft, nondistended, non-tender. Bowel sounds are positive. EXTREMITIES: Her right knee is in the CPM machine. The dressing to her knee is dry and intact. Bilateral pedal pulses are palpable at +2. NEUROLOGIC: She is awake, alert and oriented times three. LABORATORY: There are no labs or films to report at this time. ASSESSMENT: 1. Severe osteoarthritis with a valgus deformity requiring elective surgery with a right total knee arthroplasty performed by Dr. Hermann Garcia, orthopedic surgeon. Postoperative day #2. 2. History of hypertension. 3. History of peripheral vascular disease. 4. History of chronic gastroesophageal reflux disease. 5. Degenerative disc disease and chronic back pain. 6. Migraine headaches. 7. Benign essential tremors. PLAN: We will continue present supportive care. She will continue with physical therapy for strengthening and conditioning. Orthopedic issues will be per Dr. Hermann Garcia, orthopedic surgeon. Encouraged good pulmonary hygiene. Hopefully discharge within the next 1 to 2 days with outpatient physical therapy at [facility] Physical Therapy Department. Will continue to monitor closely and follow as needed. [facility][id number] [facility]
[2018-11-05] MEDS: DOCUSATE SODIUM 100 MG CAP PO SCH (20:32)
[2018-11-05] MEDS: DOCUSATE CALCIUM 240 MG CAP PO SCH (20:33)
[2018-11-05] MEDS: amLODIPine BESYLATE 5 MG TAB PO SCH (20:33)
[2018-11-06] MEDS: HYDROcodone 5MG/APAP 325MG 1 EA TAB PO PRN ×4 (05:17→18:21)
[2018-11-06] MEDS: IV SET AND CAP CHANGE INJ INJ SCH (07:30)
[2018-11-06] MEDS: CELECOXIB 100 MG CAP PO SCH ×2 (07:35→18:21)
[2018-11-06] MEDS: CYCLOBENZAPRINE HCL 10 MG TAB PO PRN ×2 (09:01→18:21)
[2018-11-06] MEDS: ASPIRIN (ENTERIC COATED) 81 MG TAB PO SCH (09:01)
[2018-11-06] MEDS: OXcarbazepine 300 MG TAB PO SCH ×2 (09:01→21:25)
[2018-11-06] MEDS: MAGNESIUM OXIDE 400 MG TAB PO SCH (09:03)
[2018-11-06] MEDS: LOSARTAN POTASSIUM 100 MG TAB PO SCH (09:03)
[2018-11-06] MEDS: CALCIUM CARBONATE (ANTACID) 500 MG CHEWABLE TAB PO SCH ×2 (09:03→21:24)
[2018-11-06] MEDS: ENOXAPARIN SODIUM 30 MG/0.3 ML SYG SUBCU SCH ×2 (12:35→23:15)
--- NOTE | 2018-11-06 13:39 | PN ---
DATE: 11/06/18 SUBJECTIVE: She is doing really well. OBJECTIVE: She is afebrile. Vital signs are stable. Wound is clean. There are no signs or symptoms of infection. ASSESSMENT: 1. Status post total knee arthroplasty. PLAN: The plan at this point is for her to continue on weightbearing as tolerated and I have encouraged her to continue no with active range of motion. #[id number] [facility]
[2018-11-06] MEDS: SODIUM CHLORIDE 0.9% (FLUSH) 10 ML SYG IV SCH ×2 (18:07→21:25)
[2018-11-06] MEDS ORDERED: BISACODYL SUPPOSITORY 10 MG PR ONE (21:00)
[2018-11-06] MEDS ORDERED: MAGNESIUM HYDROXIDE 30 ML UD PO ONE (21:00)
[2018-11-06] MEDS: DOCUSATE SODIUM 100 MG CAP PO SCH ×2 (21:24→23:22)
[2018-11-06] MEDS: amLODIPine BESYLATE 5 MG TAB PO SCH (21:24)
[2018-11-06] MEDS: DOCUSATE CALCIUM 240 MG CAP PO SCH (21:25)
[2018-11-07] MEDS: HYDROcodone 5MG/APAP 325MG 1 EA TAB PO PRN ×3 (04:25→12:23)
[2018-11-07] MEDS: CYCLOBENZAPRINE HCL 10 MG TAB PO PRN (08:01)
[2018-11-07] MEDS: CELECOXIB 100 MG CAP PO SCH (08:01)
[2018-11-07] MEDS: SODIUM CHLORIDE 0.9% (FLUSH) 10 ML SYG IV SCH (08:02)
--- NOTE | 2018-11-07 08:25 | PN ---
DATE: 11/06/18 SUPERVISING PHYSICIAN: Andrew Reece MD SUBJECTIVE: The patient is lying in bed. She is asleep. She awakens easily. She has no complaints of nausea, vomiting, constipation, diarrhea or chest pain or shortness of breath. She did say that her pain is fairly well controlled and she is pleased with her physical therapy today. OBJECTIVE: VITAL SIGNS: Temperature 97.7, heart rate 74, blood pressure 99/63, respiratory rate 16, O2 sat 100% on room air. RESPIRATORY: Essentially clear to auscultation bilaterally . CARDIAC: Regular rate and rhythm. GASTROINTESTINAL: Abdomen is soft, nondistended, non-tender. Bowel sounds are positive. EXTREMITIES: The dressing to her right knee is dry and intact. There are no signs or symptoms of infection or complications. Bilateral pedal pulses are palpable at +2. NEUROLOGIC: She is awake, alert and oriented times three. LABORATORY: There are no labs or films to report at this time. ASSESSMENT: 1. Severe osteoarthritis with a valgus deformity requiring elective surgery with a right total knee arthroplasty performed by Dr. Hermann Garcia, orthopedic surgeon. Postoperative day #3. 2. History of hypertension. 3. History of peripheral vascular disease. 4. History of gastroesophageal reflux disease. 5. Degenerative disc disease and chronic back pain. 6. Migraine headaches. 7. Benign essential tremors. PLAN: We will continue her supportive care. Orthopedic issues will be per Dr. Hermann Garcia, orthopedic surgeon. Physical therapy will continue strengthening and condition. Hopefully, she can be discharged tomorrow with followup at Outpatient Physical Therapy at the [facility] Physical Therapy Department. Otherwise, we will continue to follow closely and treat as needed. [facility][id number] [facility]
[2018-11-07] MEDS: ASPIRIN (ENTERIC COATED) 81 MG TAB PO SCH (09:22)
[2018-11-07] MEDS: MAGNESIUM OXIDE 400 MG TAB PO SCH (09:22)
[2018-11-07] MEDS: CALCIUM CARBONATE (ANTACID) 500 MG CHEWABLE TAB PO SCH (09:22)
[2018-11-07] MEDS: OXcarbazepine 300 MG TAB PO SCH (09:22)
[2018-11-07] MEDS: LOSARTAN POTASSIUM 100 MG TAB PO SCH (09:22)
[2018-11-07] MEDS: ENOXAPARIN SODIUM 30 MG/0.3 ML SYG SUBCU SCH (12:23)
[2018-11-07 15:06] VITALS: BP 111/66; TEMP 98.1; O2SAT 99
--- NOTE | 2018-11-08 21:04 | DS ---
SUPERVISING PHYSICIAN: Andrew Reece M.D. DISCHARGE DIAGNOSIS: 1. Severe osteoarthritis with valgus deformity requiring elective surgery with a right total knee arthroplasty performed by Dr. Hermann Garcia, orthopedic surgeon. Postoperative day #4. 2. History of hypertension. 3. History of peripheral vascular disease. 4. History of gastroesophageal reflux disease. 5. Degenerative disc disease and chronic back pain. 6. Migraine headaches. 7. Benign essential tremors. HISTORY OF PRESENT ILLNESS: This is a 68-year-old female patient who was admitted on the morning of her surgery for right total knee arthroplasty. She has a significant valgus deformity of the knee and was having a significant amount of pain due to the deformity. Due to the ongoing pain and deformity she requested operative intervention with elective right total knee arthroplasty performed by Dr. Hermann Garcia, orthopedic surgeon. She had no problems intraoperatively. She was admitted postoperatively to the Medical/Surgical floor. HOSPITAL COURSE: The patient had no initial complications after her operative procedure. She started her physical therapy and rehabilitation for strengthening and conditioning the next day. 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 She did require several doses of Flexeril due to muscle spasms. Her rehabilitation continued without any problems. She did decide to complete her physical therapy at the [facility] after discharge. She has met her physical therapy goals and today will be discharged home in stable condition. LABORATORY: Her followup hemoglobin and hematocrit after surgery was 11.7 and 35.1. Urine drug screen was negative. DISCHARGE PLAN: The patient will be discharged home in stable condition. She is to resume her previous diet as well as her previous medications. She is to followup with her primary care provider, Dr. Zaidi, as needed. She is to followup with Dr. Garcia within 2 weeks of her discharge. The patient is being discharged on Hydrocodone as well as Cyclobenzaprine and 9 additional days of Xarelto. She is to start her physical therapy at the [facility] tomorrow at 11:00. She is to return to the hospital or call Dr. Garcia's office or Dr. Zaidi's office for any problems or complications. DISCHARGE MEDICATIONS: 1. Trileptal. 2. Celebrex. 3. Metaxalone. 4. Vitamin D3. 5. Amlodipine. 6. Losartan. 7. Eletriptan Hydrobromide. 8. Chelated calcium. 9. Low dose aspirin. 10. Tramadol. 11. Docusate sodium. 12. Xarelto. 13. Hydrocodone. 14. Cyclobenzaprine. [facility][id number] [facility]
== END 2018-11-07 14:45 | disposition home or self-care (01) | DRG 470 ==
LOC: AMB 05:36 → MS 10:35
PROVIDERS: ADMIT Orthopaedic Surgery; ATTEND Nurse Practitioner Acute Care
PROC: 0SRC0J9 Replacement of Right Knee Joint with Synthetic Substitute, Cemented, Open Approach (ICD-10-PCS; principal; 2018-11-03 06:51)
DX: M17.11 Unilateral primary osteoarthritis, right knee (principal); G89.29 Other chronic pain; M54.9 Dorsalgia, unspecified; I10 Essential (primary) hypertension; I25.10 Atherosclerotic heart disease of native coronary artery without angina pectoris; I73.9 Peripheral vascular disease, unspecified; E78.5 Hyperlipidemia, unspecified; K21.9 Gastro-esophageal reflux disease without esophagitis; G25.0 Essential tremor; I25.2 Old myocardial infarction; Z88.1 Allergy status to other antibiotic agents; Z88.2 Allergy status to sulfonamides; Z79.1 Long term (current) use of non-steroidal anti-inflammatories (NSAID); Z88.8 Allergy status to other drugs, medicaments and biological substances; Z79.82 Long term (current) use of aspirin; Z79.891 Long term (current) use of opiate analgesic; Z79.899 Other long term (current) drug therapy; Z88.3 Allergy status to other anti-infective agents

== ENCOUNTER 2018-12-21 05:31 | Day surgery (SDC) | payer MEDICARE ==
[2018-12-21] MEDS ORDERED: LACTATED RINGERS 1,000 ML ONE (07:38)
[2018-12-21] MEDS ORDERED: HYDROmorphone HCL INJ 2 MG/ML VIAL ONE (09:50)
[2018-12-21] MEDS ORDERED: MIDAZOLAM INJ 2 MG/2 ML VIAL ONE (09:50)
[2018-12-21] MEDS ORDERED: KETAMINE HCL 50 MG/ML SYG IV ONE (09:51)
[2018-12-21] MEDS ORDERED: PROPOFOL 200 MG/20 ML VIAL IV ONE (10:00)
[2018-12-21] MEDS ORDERED: SODIUM CHLORIDE 0.9% 50 ML VIAL INJ ONE (10:00)
[2018-12-21] MEDS ORDERED: LIDOCAINE 1% 10 ML VIAL INJ ONE (10:00)
[2018-12-21] MEDS ORDERED: DEXAMETHASONE INJ 10 MG/ML VIAL IV ONE (10:00)
[2018-12-21] MEDS ORDERED: traMADol HCL 50 MG TAB ONE (10:42)
[2018-12-21] MEDS ORDERED: ONDANSETRON ODT 8 MG TAB PO ONE (11:25)
[2018-12-21] MEDS ORDERED: ONDANSETRON ODT 8 MG TAB ONE (11:33)
[2018-12-21] MEDS ORDERED: PROMETHAZINE SUPP 12.5 MG SUP PR ONE (13:30)
[2018-12-21] MEDS ORDERED: PROMETHAZINE HCL 25 MG TAB ONE (13:32)
--- NOTE | 2018-12-21 13:35 | RAD ---
PROVIDED CLINICAL HISTORY/REASON FOR EXAM: TIAGO Findings/impression: Number of images: One Location: Knee One intraoperative fluoroscopic image of a total knee arthroplasty. Fluoroscopic time five seconds. Dose not provided. Electronically signed by: Thor Faith MD 12/21/2018 1:34 PM CDT
[2018-12-21 14:58] VITALS: BP 138/58; TEMP 98.9; O2SAT 99
--- NOTE | 2018-12-22 08:11 | OP ---
DATE OF PROCEDURE: 12/21/18 PREOPERATIVE DIAGNOSIS: 1. Arthrofibrosis. POSTOPERATIVE DIAGNOSIS: 1. Arthrofibrosis. PROCEDURE: 1. Manipulation under anesthesia. SURGEON: Hermann Garcia MD. GLASSWARE MAKER: Jhonatan Gongora CST, SA-C. ANESTHESIA: Conscious sedation. COMPLICATIONS: None. FINDINGS: Preprocedure flexion to about 95 degrees. Postprocedure flexion to about 125 degrees. INDICATION: Ms. Chu has a history of total knee arthroplasty. Unfortunately, Ms. Chu is not very diligent in her therapy. Because of that, she has developed arthrofibrosis. We have discussed the condition and treatment options. After discussing the risks, benefits and alternatives to closed manipulation under anesthesia, she gave informed consent. PROCEDURE: The patient was brought to the Operating Room and placed in supine position. Conscious sedation was administered. After adequate sedation had been provided, the knee was hyperflexed. Following hyperflexion of the knee, the patient was then taken back to the Day Surgery Unit. POSTOPERATIVE PLAN: The patient will go to physical therapy starting today. She will be doing therapy exercises everyday and I have really encouraged both she and her to be very aggressive on these exercises. I will see her back again in about 10 days. #[id number] [facility]
== END 2018-12-21 14:50 | disposition home or self-care (01) ==
LOC: AMB 05:31
PROVIDERS: ATTEND Orthopaedic Surgery
DX: M24.661 Ankylosis, right knee (principal); Z96.651 Presence of right artificial knee joint; Z88.1 Allergy status to other antibiotic agents; Z88.8 Allergy status to other drugs, medicaments and biological substances; Z79.82 Long term (current) use of aspirin; Z79.01 Long term (current) use of anticoagulants; Z79.899 Other long term (current) drug therapy
CPT/HCPCS: 01380; 27570; 76000; 80307; 87070; A4216; J1100; J1170; J2250; J3490; J7120; Q0169

== ENCOUNTER 2019-06-05 12:21 | Observation (INO) | payer MEDICARE ==
[2019-06-05] MEDS ORDERED: ASPIRIN TABLET 325 MG TAB PO ONE (12:24)
--- NOTE | 2019-06-05 12:31 | ED.PDOC ---
History of Present Illness - General Stated Complaint: chest Time Seen by Provider: 06/05/19 12:23 Source: patient, RN notes reviewed Exam Limitations: no limitations Additional Information: 69 with history of coronary artery disease, high blood pressure, previous [place] in 2018, patient presenting with chest pain for the last 3 days, no other symptoms, pain is located on the right side, and it doesnt last more than 20 minutes. pain at the moment is 5/10 - History of Present Illness Timing/Duration: days Severity/Quality: mild, pressure Location: other - right side Chest Pain Radiation: no radiation Activities at Onset: none Prior Chest Pain/Cardiac Workup: cardiac cath, heart attack Improving Factors: nothing Nitro Today/Relief: no nitro taken today Aspirin Treatment Today: 81 mg x 1 Associated Symptoms: denies symptoms Allergies/Adverse Reactions: Allergies Cephalexin [From Keflex] Allergy (Verified 12/16/18 12:26) Rash Levofloxacin [From Levaquin] Allergy (Verified 12/16/18 12:26) Rash Sulfamethoxazole w/Trimethoprim [From Bactrim] Allergy (Verified 12/16/18 12:26) Other Causes swollen lips and tongue Atorvastatin [From Lipitor] Adverse Reaction (Verified 12/16/18 12:26) migraine headaches Rosuvastatin [From Crestor] Adverse Reaction (Verified 12/16/18 12:26) leg problems Home Medications: Ambulatory Orders Celecoxib [CeleBREX] 200 mg PO BEDTIME 05/15/16 Cholecalciferol [Vitamin D3] 5,000 unit PO DAILY 05/15/16 Amlodipine Besylate 5 mg PO BEDTIME 12/19/16 Aspirin [Aspirin Adult Low Strengt] 81 mg PO DAILY 08/06/18 Calcium [Chelated Calcium] 400 mg PO BID 08/06/18 Eletriptan Hydrobromide 40 mg PO PRN 08/06/18 Losartan Potassium 100 mg PO DAILY 08/06/18 Tramadol HCl 50 mg PO Q8HR PRN #20 tab 08/06/18 Docusate Sodium [Stool Softener Extra Stre] 250 mg PO BEDTIME 11/01/18 Cyclobenzaprine HCl [Cyclobenzaprine Hydrochlo] 10 mg PO TID PRN #30 tab 11/07 Review of Systems - Review of Systems Constitutional: Denies: chills, diaphoresis, fever, malaise, weakness EENTM: Denies: eye pain, blurred vision, tearing, double vision, ear pain, ear discharge, nose pain, nose congestion, throat pain, throat swelling, mouth pain, mouth swelling Respiratory: Denies: cough, orthopnea, short of breath, stridor, wheezing Cardiology: States: chest pain. Denies: edema, palpitations, syncope Gastrointestinal/Abdominal: Denies: abdominal pain, constipation, diarrhea, nausea, vomiting Musculoskeletal: Denies: back pain, gout, joint pain, joint swelling, muscle pain, muscle stiffness, neck pain Skin: Denies: change in hair/nails, dryness, lesions, lumps, rash Neurological: Denies: see HPI, anxiety, depressed, emotional problems, headache, numbness, paresthesia, pre-existing deficit, tingling, tremors, weakness Endocrine: Denies: excessive sweating, flushing, intolerance to cold, intole mercy to heat, increased hunger, increased thirst, increased urine, unexplained weight gain, unexplained weight loss Hematologic/Lymphatic: Denies: anemia, blood clots, easy bleeding, easy bruising, swollen glands Past Medical History (General) - Patient Medical History Hx Seizures: No Hx Stroke: No Hx Asthma: No Hx of COPD: No Hx Cardiac Disorders: Yes - Hx [place] Hx Congestive Heart Failure: No Hx Pacemaker: No Hx Hypertension: No Hx Diabetes: No Hx MRSA: No - Vaccination History Hx Tetanus, Diphtheria Vaccination: Yes - 07/08/18 Hx Influenza Vaccination: Yes Hx Pneumococcal Vaccination: Yes - Social History Hx Tobacco Use: No Hx Alcohol Use: No Hx Substance Use: No Hx Substance Use Treatment: No Hx Depression: No Hx Physical Abuse: No Hx Emotional Abuse: No Hx Suspected Abuse: No Family Medical History - Family History Mother Family History: Unknown Living Status: Unknown Hx Family Hypertension: Yes - parents Hx Family Diabetes: Yes - dad Physical Exam - Physical Exam General Appearance: Alert, Well Developed, Well Groomed, Well Hydrated Eyes, Ears, Nose, Throat Exam: PERRL/EOMI, normal ENT inspection, TMs normal Neck: non-tender, full range of motion, supple Respiratory: chest non-tender, lungs clear, normal breath sounds, no respiratory distress, no accessory muscle use Cardiovascular/Chest: normal peripheral pulses, regular rate, rhythm, no edema, no gallop, no JVD Peripheral Pulses: radial,right: 2+, radial,left: 2+ Gastrointestinal/Abdominal: normal bowel sounds, non tender, soft, no organomegaly, no pulsatile mass Extremity: normal range of motion, non-tender, normal inspection, no pedal edema, no calf tenderness Neurologic: 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 Patient ekg didn't show any acute ischemic changes, heart rate is 73, patient will received aspirin to complete the 325 mg, nitro and cardiac evaluation 06/05/19 13:09 patient first set of troponins were negative, chest xray no aortic widening to suggest aortic dissection, I spoke with the hospitalist and We will admit patient for chest pain rule out once after a negative second troponin 06/05/19 15:00 negative second troponin patient ill be admitted for chest pain work up and rule ACS Departure - Departure Clinical Impression: Acute coronary syndrome Disposition: Admit Patient Referrals: Roberth Zaidi MD [Primary Care Provider] - 1-2 Weeks Home Medications: Ambulatory Orders Celecoxib [CeleBREX] 200 mg PO BEDTIME 05/15/16 Cholecalciferol [Vitamin D3] 5,000 unit PO DAILY 05/15/16 Amlodipine Besylate 5 mg PO BEDTIME 12/19/16 Aspirin [Aspirin Adult Low Strengt] 81 mg PO DAILY 08/06/18 Calcium [Chelated Calcium] 400 mg PO BID 08/06/18 Eletriptan Hydrobromide 40 mg PO PRN 08/06/18 Losartan Potassium 100 mg PO DAILY 08/06/18 Tramadol HCl 50 mg PO Q8HR PRN #20 tab 08/06/18 Docusate Sodium [Stool Softener Extra Stre] 250 mg PO BEDTIME 11/01/18 Cyclobenzaprine HCl [Cyclobenzaprine Hydrochlo] 10 mg PO TID PRN #30 tab 11/07/18 Decision To Admit - Decistion To Admit Decision to Admit Date: 06/05/19 Decision to Admit Time: 15:01
[2019-06-05] MEDS ORDERED: ASPIRIN (CHEWABLE) 81 MG TAB PO ONE (12:36)
[2019-06-05] MEDS: NITROGLYCERIN 0.4 MG 25 EA TAB SL ONE ×3 (12:41→12:55)
--- NOTE | 2019-06-05 15:04 | HP ---
SUPERVISING PHYSICIAN: Anand Lopez MD CHIEF COMPLAINT: Chest pain, right side. HISTORY OF PRESENT ILLNESS: Ms. Chu is a 69-year-old female patient with known coronary artery disease and past history of a myocardial infarction in 2018 with negative cath. She notices that she has been having right-sided chest pain for the last 4 to 5 days. She is taking anything in efforts to relieve the pain, notes that it is just a dull ache, it is not radiating. It is actually pinpoint. She denies any recent illness, notes she has had a cough but has been nonproductive. She notes the pain has been up to a 5 at most, 10 on pain scale. Initial workup in the Emergency Room showed an EKG that was normal sinus rhythm with no ST or T-wave changes indicating ischemia acute injury pattern. Her 2 troponins were within normal limits, first one 0.02. Potassium was a little low at 3.2, otherwise the rest of the chemistries were within normal limits. CBC showed a white count of 20,800, otherwise everything else was within normal limits. RADIOLOGY: Chest x-ray showed no significant acute findings, awaiting radiology interpretation. She was given Nitro in the Emergency Room that did not significantly decrease the pain as well as a 325 mg aspirin. Given the patient's past medical history and risk factors, the Emergency Room physician requested the patient be placed in observation for extended rule out for acute coronary syndrome. The patient was placed in observation in stable condition. PAST MEDICAL HISTORY: 1. Hypertension. 2. Coronary artery disease with previous myocardial infarction in 2018 and negative cath per Dr. Flaherty. 3. Benign essential tremors. 4. Migraine headaches. 5. Hyperlipidemia. 6. Gastroesophageal reflux disease. PAST SURGICAL HISTORY: 1. Ablation in 2000. 2. Fusion of L2 to L4 disc with titanium disc replacement. 3. Left middle finger partial amputation. 4. Left shoulder surgery. 5. Previous cardiac cath at [facility] in June 2017, which was negative. 6. Right total knee arthroplasty in October 2018. CURRENT MEDICATIONS: 1. Tramadol 50 mg every 8 hours p.r.n. as needed. 2. Losartan 100 mg daily. 3. Eletriptan Hydromide 40 mg p.r.n. 4. Stool softener daily. 5. Flexeril 10 mg t.i.d. as needed. 6. Vitamin D3, 5000 units daily. 7. Celebrex 200 mg at bedtime. 8. Calcium 400 mg b.i.d. 9. Aspirin 81 mg daily. 10. Amlodipine 5 mg at bedtime. ALLERGIES: Multiple allergies including Cephalosporin, fluoroquinolone, Bactrim, Lipitor, Crestor . FAMILY HISTORY: Father has a history of hypertension, peripheral vascular disease, type 2 diabetes mellitus and recurrent myocardial infarctions at age 91. Mother is currently alive at age 87. She has a history of hypertension. She has one sister who has diabetes, one son has allergies. Grandmother had breast cancer, an uncle with stomach cancer. SOCIAL HISTORY: The patient lives in [place], [place]. 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 She does not drink alcohol, nor does she smoke tobacco or use illicit drugs. REVIEW OF SYSTEMS: CONSTITUTIONAL: Denies chills, fevers, diaphoresis, general malaise or weakness. HEENT: Denies earaches, vision changes, nasal congestion, sore throat. CHEST: Denies coughing, orthopnea, shortness of breath or wheezing. HEART: As noted in history of present illness. Right-sided chest pain, nonradiating. Denies any edema, palpitations or syncopal episodes. ABDOMEN: Denies abdominal pain, constipation, diarrhea, nausea or vomiting. MUSCULOSKELETAL: Denies back pain, joint swelling, neck pain. SKIN: Denies any changes, lesions, rashes or sores. NEUROLOGIC: Denies any ataxia, seizures or other focal deficits. HEMATOLOGIC: Denies easy bruising or unexplained bleeding, transfusion reactions. PHYSICAL EXAMINATION: VITAL SIGNS: Temperature 97.6, pulse 80, blood pressure 186/84, respirations 18, oxygen saturation 99% on room air. GENERAL: The patient is resting comfortably, appears to be in no acute distress. She says she is still having chest pain, rating 3/10, nonradiating and is pinpoint on the right side of the chest. She does appear to be well-hydrated. HEENT: Tympanic membranes clear bilaterally. Oropharynx is pink, moist without any lesions. NECK: Supple, non-tender, full range of motion. No jugular venous distention. CHEST: Lung sounds are clear to auscultation without rhonchi, rales, or wheezes. Non-tender to palpation over the chest wall with equal excursions. CARDIOVASCULAR: Heart regular rate and rhythm without appreciable murmurs, rubs, or gallops. ABDOMEN: Soft, non-tender, positive bowel sounds. EXTREMITIES: Without cyanosis, clubbing, or edema. NEUROLOGIC: Cranial nerves II through XII are grossly intact. Facial features were symmetrical. Extraocular movement were within normal limits. There is no notable nystagmus. SKIN: Warm, pink and dry. LABORATORY: CBC showed a white count of 3,800, hemoglobin 13.6, hematocrit 40.0, platelet count 286,000. Differential showed to be without a left shift. Chemistries shoed a mild hypokalemia with potassium of 3.2, sodium 136, BUN 21, creatinine 0.75, calcium 9.56. Liver functions all within normal limits. Troponin initial was 0.02. Second troponin pending at time of admission. RADIOLOGY: Chest x-ray showed to be without any consolidations, pneumothorax, awaiting radiology interpretation. Initial EKG 12-lead showed normal sinus rhythm with no ST or T-wave changes when compared to EKG from September of 2018. She also had an echocardiogram that was done in June of 2017 that showed an ejection fraction of 70% with a normal left ventricular function and a grade 2 diastolic dysfunction. ASSESSMENT: 1. Right-sided chest pain. continue to rule out with a history of previous myocardial infarction in 2018. 2. Hypertension with last echocardiogram in June of 2017 showing a grade 2 diastolic dysfunction with an ejection fraction of 70%. 3. History of migraine headaches. 4. Benign essential tremors. 5. History of gastroesophageal reflux disease. 6. Degenerative disk disease with chronic back pain. 7. History of peripheral vascular disease. PLAN: Ms. Chu is going to placed in observation for an extended rule out acute coronary syndrome with right-sided chest pain. Will continue to monitor closely with telemetry. Will go ahead and place her on a Nitro patch as well as give her some Toradol to see if this will help relieve some of the right-sided chest pain. The chest pain has been reported going on for 5 days. The patient was just worried that it was continuous and hadn't resolved, therefore, that is why she came to the Emergency Room. Dr. Flaherty has apparently told her in the past if the pain does not get above 8 to not worry about it. She was given aspirin in the Emergency Room. We will continue this. She will be on DVT prophylaxis per protocol with Lovenox. Will follow her serial cardiac enzymes and EKGs. I would anticipate her length of stay to be 1 to 2 days and if anything acutely does change, certainly we will discuss the case with cardiology and get the patient transferred,. We probably need to touch base with Dr. Flaherty tomorrow, apparently the patient has had a stress test done and review of those medical records did show it was in 2010 and was a normal stress test. All her EKGs comparison-faulkner, showed no acute changes with an EKG showing normal sinus rhythm. Until we can transition her to outpatient management, we will continue to monitor and treat as needed. #[id number] [facility]
[2019-06-05] MEDS ORDERED: MORPHINE SULFATE INJ 10 MG/ML VIAL IV PRN (16:28)
[2019-06-05] MEDS ORDERED: ACETAMINOPHEN 325 MG TAB PO PRN (16:28)
[2019-06-05] MEDS ORDERED: SODIUM CHLORIDE 0.9% (FLUSH) 10 ML SYG IV PRN (16:28)
[2019-06-05] MEDS ORDERED: NITROGLYCERIN 0.4 MG 25 EA TAB SL PRN (16:28)
[2019-06-05] MEDS ORDERED: IV SET AND CAP CHANGE INJ INJ SCH (16:30)
[2019-06-05] MEDS ORDERED: KETOROLAC TROMETHAMINE INJ 30 MG/ML VIAL IV ONE (16:31)
[2019-06-05] MEDS ORDERED: KCL 40MEQ/NS 1,000 ML IVS ONE (16:33)
[2019-06-05] MEDS: ENOXAPARIN SODIUM 40 MG/0.4 ML SYG SUBCU SCH (17:54)
[2019-06-05] MEDS ORDERED: amLODIPine BESYLATE 5 MG TAB PO SCH (21:00)
[2019-06-05] MEDS ORDERED: ELETRIPTAN HYDROBROMIDE 40 MG PO SCH (21:00)
[2019-06-05] MEDS ORDERED: CELECOXIB 100 MG CAP PO SCH (21:00)
[2019-06-05] MEDS ORDERED: DOCUSATE SODIUM 250 MG PO SCH (21:00)
[2019-06-05] MEDS: CALCIUM PO SCH (21:35)
[2019-06-05] MEDS: SODIUM CHLORIDE 0.9% (FLUSH) 10 ML SYG IV SCH (21:35)
[2019-06-06] MEDS: ENOXAPARIN SODIUM 40 MG/0.4 ML SYG SUBCU SCH (08:22)
[2019-06-06] MEDS: SODIUM CHLORIDE 0.9% (FLUSH) 10 ML SYG IV SCH (08:22)
[2019-06-06] MEDS ORDERED: CHOLECALCIFEROL 2,000 IU TAB PO SCH (09:00)
[2019-06-06] MEDS ORDERED: ASPIRIN TABLET 325 MG TAB PO SCH (09:00)
[2019-06-06] MEDS ORDERED: LOSARTAN POTASSIUM 100 MG TAB PO SCH (09:00)
[2019-06-06] MEDS ORDERED: ASPIRIN (ENTERIC COATED) 81 MG TAB PO SCH (09:00)
[2019-06-06] MEDS: CALCIUM PO SCH (09:41)
[2019-06-06 10:49] VITALS: O2SAT 98
[2019-06-06] MEDS ORDERED: ALUM & MAG HYDROX-SIMETHICONE 30 ML, LIDOCAINE VISCOUS 2% 15 ML PO ONE ×2 (11:12)
[2019-06-06] MEDS ORDERED: LIDOCAINE HCL 2% (MOUTH-THROAT) 15 ML UD ONE (11:27)
[2019-06-06] MEDS ORDERED: ALUM & MAG HYDROX-SIMETHICONE 30 ML UD ONE ×2 (11:27→11:28)
[2019-06-06 13:49] VITALS: BP 144/84; TEMP 98.2
--- NOTE | 2019-06-06 14:07 | US ---
EXAM DESCRIPTION: Abdomen,Limited: ULTRASOUND. CLINICAL HISTORY: epigastric pain, elevated Amylase COMPARISON: Portable chest one day earlier. TECHNIQUE: Transabdominal scanning: matos-scale mode. Doppler mode. FINDINGS: Gallbladder: normal size, shape, echogenicity; no intraluminal stones or sludge. No fluid around the gallbladder. No wall thickening. 1.6 mm. Non-tender with transducer pressure. Common bile duct: caliber 4.8 mm within normal limits. Liver: normal echogenicity; contour liver capsule smooth where seen. No fluid around the liver. Intrahepatic biliary ducts normal caliber. Doppler hepatopedal flow and normal caliber portal vein.. Long axis right lobe 13.6 cm. Pancreas: normal size and echogenicity. Duct not seen. Proximal abdominal aorta: 1.6 cm normal diameter.. IVC: visualized and normal caliber. Right kidney: long axis measures 8.8 cm. Increased Echogenicity, but less than the liver. Normal cortical thickness. No echogenic stones or hydronephrosis. IMPRESSION: Normal ultrasound of the gallbladder, common bile duct, liver and intrahepatic ducts, pancreas. Echogenicity of the right kidney related to patient's age with no acute abnormalities. No ascites. Electronically signed by: Jhonatan Smith MD 06/06/2019 2:05 PM GENERAL ASSEMBLER
[2019-06-06] MEDS ORDERED: DOCUSATE SODIUM 100 MG CAP PO SCH (21:00)
--- NOTE | 2019-06-07 08:21 | DS ---
SUPERVISING PHYSICIAN: Adrian Burnett MD ADMISSION DIAGNOSIS: 1. Chest pain extended rule out. 2. Hypertension with last echocardiogram in June of 2017 showing a grade 2 diastolic dysfunction with an ejection fraction of 70%. 3. History of migraine headaches. 4. Benign essential tremors. 5. History of gastroesophageal reflux disease. 6. Degenerative disk disease with chronic back pain. 7. History of peripheral vascular disease. DISCHARGE DIAGNOSIS: 1. Chest pain, right sided with no acute changes in EKGs or troponin levels to indicate acute coronary syndrome, etiology uncertain, possibly related to chronic nonsteroidal anti-inflammatory usage with some mild gastritis versus costochondritis. 2. Hypertension with last echocardiogram in June of 2017 showing a grade 2 diastolic dysfunction with an ejection fraction of 70%. 3. Elevated amylase level, etiology uncertain, in the presence of normal lipase level, possibly chronic elevated levels for the patient with ultrasound of gallbladder, liver and pancreas within normal limits with the patient not showing any signs or symptoms of abdominal pain, requiring close followup in the outpatient setting with Dr. Zaidi. 4. History of migraine headaches. 5. Benign essential tremors. 6. History of gastroesophageal reflux disease, not previously on proton pump inhibitor, started on proton pump inhibitor at discharge. 7. Degenerative disk disease with chronic back pain. 8. History of peripheral vascular disease. REASON FOR HOSPITALIZATION: Ms. Chu is a 69-year-old female patient with known coronary artery disease and past history of a myocardial infarction in 2018 with negative cath. She notices that she has been having right-sided chest pain for the last 4 to 5 days. She is taking anything in efforts to relieve the pain, notes that it is just a dull ache, it is not radiating. It is actually pinpoint. She denies any recent illness, notes she has had a cough but has been nonproductive. She notes the pain has been up to a 5 at most, 10 on pain scale. Initial workup in the Emergency Room showed an EKG that was normal sinus rhythm with no ST or T-wave changes indicating ischemia acute injury pattern. Her 2 troponins were within normal limits, first one 0.02. Potassium was a little low at 3.2, otherwise the rest of the chemistries were within normal limits. CBC showed a white count of 20,800, otherwise everything else was within normal limits. LABORATORY: White count 3,800, hemoglobin 13.6, hematocrit 40.0, platelet count 286,000, differential was without a left shift. Chemistries on discharge showed normal electrolytes. BUN 16, creatinine 0.7. Magnesium 2.0. Liver functions all within normal limits. She had 3 sets of troponins that were less than 0.02. She did have a slightly elevated amylase at 194, but normal lipase at 28. At discharge, amylase was down to 126. EKG showed normal sinus rhythm, no ST or T-wave changes to indicate acute ischemia or injury pattern. RADIOLOGY: Chest x-ray per radiologic interpretation showed just emphysematous changes, no acute findings. Please see that report for details. She also had an abdominal ultrasound and per radiologic interpretation showed normal ultrasound of the gallbladder, common bile duct, liver, hepatic ducts, pancreas. There was echogenicity of the right kidney related to the patient's age with no acute abnormalities. There was no ascites. HOSPITAL COURSE: Ms. Chu was placed in observation from the Emergency Room for extended rule out for chest pain. When she got to the Floor, her pain was rated at 1. I did give her some Toradol which she reported resolved her symptoms. The pain was located on the right side of the chest, fourth intercostal space, just between the sternal border and mid axillary line. On the morning of discharge, the patient noted the pain was better, discomfort was more epigastric. She was given a GI cocktail which did resolve her symptoms. Her EKGs showed no changes. She had no abnormal rhythms, no ectopy. Blood pressure was stable and it was felt she had demonstrated that she was clinically stable and the likely cause of her chest pain was probably due to some mild gastritis versus costochondritis. Again, it did resolve with pain management and GI cocktail. I did discuss the case with Dr. Zaidi on the morning of discharge and he was in agreement with the plan of care. She is going to followup with him and Dr. Flaherty as needed as well as to have an outpatient workup with a chest CT. Again, she was stable with no recurrence of symptoms and was felt clinically well enough to continue with outpatient management. DISCHARGE ASSESSMENT: VITAL SIGNS: Temperature 98.2. Pulse 68. Blood pressure 144/84. Respirations 18. Saturation 98% on room air. GENERAL: The patient is resting comfortably, appeared in no acute distress. She was pain-free at time of exam. CHEST: Lung sounds were clear to auscultation bilaterally without any rales, rhonchi or wheezing. HEART: Regular rate and rhythm without any appreciable murmurs, gallops, or rubs. ABDOMEN: Soft, nontender. Positive bowel sounds. EXTREMITIES: No edema. NEUROLOGIC: Alert and oriented x3. PLAN: Ms. Chu was discharged on 06/06/19 to have close clinical followup with Dr. Zaidi and Dr. Flaherty. She will certainly more likely will need to have a stress test done. This can be arranged through Dr. Flaherty's office. She had a followup appointment on 06/13/[address] at [address] Zaidi. I did start her on Protonix for proton pump inhibitor for coverage of possible gastritis related to NSAID usage in the form of Celebrex. She was encouraged to eat a low fat diet and avoid spicy foods and alcohol. Activity to increase as tolerated. She was given warning to return to the Emergency Department should she have any return of symptoms or call Dr. Zaidi's office. Prescriptions on discharge included Protonix 20 mg daily, #30, no refills. All other medications prior to hospitalization were continued which included: 1. Aspirin 81 mg daily. 2. Amlodipine 5 mg at bedtime. 3. Tramadol 50 mg q.6h. as needed p.r.n. 4. Losartan 100 mg daily. 5. Eletriptan hydrobromide 40 mg p.r.n. 6. Stool softener 250 mg at bedtime. 7. Flexeril 10 mg t.i.d. as needed. 8. Vitamin D3 5000 units daily. 9. Celebrex 200 mg at bedtime. 10. Calcium supplement 400 mg b.i.d. CONDITION ON DISCHARGE: Stable and improved. DISPOSITION: The patient was discharged home. #[id number] MTDD
== END 2019-06-06 15:10 | disposition home or self-care (01) ==
LOC: ER 12:21 → MS 15:03
PROVIDERS: ADMIT Nurse Practitioner Family; ATTEND Nurse Practitioner Family
DX: R07.89 Other chest pain (principal); I10 Essential (primary) hypertension; R74.8 Abnormal levels of other serum enzymes; E87.6 Hypokalemia; I25.10 Atherosclerotic heart disease of native coronary artery without angina pectoris; G43.909 Migraine, unspecified, not intractable, without status migrainosus; G25.0 Essential tremor; K21.9 Gastro-esophageal reflux disease without esophagitis; G89.29 Other chronic pain; M51.36 Other intervertebral disc degeneration, lumbar region; E78.5 Hyperlipidemia, unspecified; I73.9 Peripheral vascular disease, unspecified; I25.2 Old myocardial infarction; Z79.891 Long term (current) use of opiate analgesic; Z79.82 Long term (current) use of aspirin; Z79.899 Other long term (current) drug therapy; Z96.651 Presence of right artificial knee joint; Z88.1 Allergy status to other antibiotic agents; Z88.3 Allergy status to other anti-infective agents; Z88.8 Allergy status to other drugs, medicaments and biological substances; Z82.49 Family history of ischemic heart disease and other diseases of the circulatory system; Z83.3 Family history of diabetes mellitus
CPT/HCPCS: 96366 ×2; 96365; 96375; 96372 ×2; J1885; J1650 ×2; J3480; 80053 ×2; 36415 ×3; 82150 ×2; 85025; 83690 ×2; 83735; 84484 ×3; 83880; 71045; 76775; 94760 ×3; 99285; 93005 ×2

== ENCOUNTER → 2019-06-21 | Outpatient (CLI) | payer MEDICARE ==
--- NOTE | 2019-06-21 18:14 | CT ---
EXAM DESCRIPTION: Chest w/o Contrast CLINICAL HISTORY: 69 years Female, CHEST PAIN TECHNIQUE: This exam was performed according to our departmental dose-optimization program, which includes automated exposure control, adjustment of the mA and/or kV according to patient size and/or use of iterative reconstruction technique. COMPARISON: None at time of initial interpretation. FINDINGS: The thyroid gland is unremarkable. No axillary adenopathy. Normal caliber thoracic aorta. Trace aortic valvular calcifications. No pericardial effusion. Nonobstructing left nephrolithiasis. No evidence of acute process in the visualized upper abdomen. No mediastinal adenopathy. No pneumothorax. No pleural effusion. No focal consolidation. Solid noncalcified sub-6 mm left upper lobe pulmonary nodule series 4 image 17. No other pulmonary nodule identified. No acute or suspicious osseous abnormality. Scattered degenerative changes present. IMPRESSION: 1. No evidence of acute process in the chest. 2. Single solid noncalcified sub-6 mm pulmonary nodule. According to the most recent Fleischner Society Pulmonary Nodule Guidelines ( DOI: http://dx.doi.org/10.1148/radiol.2400745488 ), in the absence of risk factors, for a single solid nodule measuring smaller than 6 mm, no CT follow-up is required. If the patient is considered high-risk for bronchogenic carcinoma, 1-year CT follow-up is recommended. *High-risk features include: history of smoking, exposure to other carcinogens, emphysema, fibrosis, upper lobe location, family history of lung cancer. Electronically signed by: Thor Faith MD 06/21/2019 6:12 PM [facility]
== END ==
LOC: CT 09:58
PROVIDERS: ATTEND Family Medicine
DX: R07.9 Chest pain, unspecified (principal); R91.1 Solitary pulmonary nodule

== ENCOUNTER 2019-09-16 10:50 | Emergency (ER) | payer MEDICARE ==
[2019-09-16 11:07] VITALS: BP 167/80; TEMP 97.4; O2SAT 98
[2019-09-16] MEDS ORDERED: LIDOCAINE 1% W/ EPINEPHRINE 20 ML VIAL INJ ONE (11:12)
--- NOTE | 2019-09-16 11:31 | ED.PDOC ---
History of Present Illness - General Chief Complaint: Head Injury Stated Complaint: hit top of head on edge of mower, denies loc Time Seen by Provider: 09/16/19 11:11 Source: patient, RN notes reviewed, Vital Signs reviewed Exam Limitations: no limitations - History of Present Illness Initial Comments: This is a 69-year-old female presenting to the emergency department with area of swelling and bleeding to the vertex of the scalp. Patient states she was walking underneath her lawnmower swing arm and hit the top of her head. She denies any fall. She denies any loss of consciousness, vomiting, neck pain, back pain. No other injuries. DTaP last updated in 2018. No weakness/numbness/tingling. She takes baby aspirin only, no other blood thinners. Occurred: just prior to arrival Allergies/Adverse Reactions: Allergies Cephalexin [From Keflex] Allergy (Verified 09/16/19 11:03) Rash Levofloxacin [From Levaquin] Allergy (Verified 09/16/19 11:03) Rash Sulfamethoxazole w/Trimethoprim [From Bactrim] Allergy (Verified 09/16/19 11:03) Other Causes swollen lips and tongue Atorvastatin [From Lipitor] Adverse Reaction (Verified 09/16/19 11:03) migraine headaches Rosuvastatin [From Crestor] Adverse Reaction (Verified 09/16/19 11:03) leg problems Home Medications: Ambulatory Orders Celecoxib [Celebrex] 200 mg PO BEDTIME 05/15/16 Cholecalciferol [Vitamin D3] 5,000 unit PO DAILY 05/15/16 Amlodipine Besylate 5 mg PO BEDTIME 12/19/16 Aspirin [Aspirin Adult Low Strengt] 81 mg PO DAILY 08/06/18 Calcium [Chelated Calcium] 400 mg PO BID 08/06/18 Eletriptan Hydrobromide 40 mg PO PRN 08/06/18 Losartan Potassium 100 mg PO DAILY 08/06/18 Tramadol HCl 50 mg PO Q8HR PRN #20 tab 08/06/18 Docusate Sodium [Stool Softener Extra Stre] 250 mg PO BEDTIME 11/01/18 Cyclobenzaprine HCl [Cyclobenzaprine Hydrochlo] 10 mg PO TID PRN #30 tab 11/07/18 Pantoprazole Sodium [Protonix] 20 mg PO DAILY #30 tab 06/06/19 Review of Systems - Review of Systems Constitutional: Denies: chills, fever EENTM: Denies: eye pain, nose pain Respiratory: Denies: orthopnea, short of breath Cardiology: Denies: chest pain, edema Gastrointestinal/Abdominal: Denies: abdominal pain, diarrhea, nausea, vomiting Musculoskeletal: Denies: back pain, joint pain, muscle stiffness, neck pain Neurological: Denies: headache, numbness, paresthesia, seizure, tingling, weakness Endocrine: States: no symptoms reported Hematologic/Lymphatic: States: no symptoms reported Past Medical History (General) - Patient Medical History Hx Seizures: No Hx Stroke: No Hx Dementia: No Hx Asthma: No Hx of COPD: No Hx Cardiac Disorders: Yes - Hx ME Hx Congestive Heart Failure: No Hx Pacemaker: No Hx Hypertension: No Hx Thyroid Disease: No Hx Diabetes: No Hx Gastroesophageal Reflux: No Hx Renal Disease: No Hx Cancer: No Hx of HIV: No Hx Hepatitis C: No Hx MRSA: No - Vaccination History Hx Tetanus, Diphtheria Vaccination: Yes - 2018 Hx Influenza Vaccination: Yes Hx Pneumococcal Vaccination: Yes Immunizations Up to Date: No - Social History Hx Tobacco Use: No Hx Chewing Tobacco Use: No Hx Alcohol Use: No Hx Substance Use: No Hx Substance Use Treatment: No Hx Depression: No Feels Threatened In Home Enviroment: No Feels Threatened In a Relationship: No Hx Physical Abuse: No Hx Emotional Abuse: No Hx Suspected Abuse: No Family Medical History - Family History Mother Family History: Unknown Living Status: Unknown Hx Family Hypertension: Yes - parents Hx Family Diabetes: Yes - dad Physical Exam - Physical Exam General Appearance: Alert, Comfortable, No apparent distress Head Injury: swelling, other - There is a 3 x 3 cm hematoma to the vertex of the scalp with a 0.5 cm central abrasion, no active bleeding. 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 She takes aspirin only, no other blood thinners. She denies any headache, loss of consciousness, vomiting. Very low force mechanism, no indication for CT at this time. I discussed my plan to defer CT scan with patient and family, they agree with plan. Scalp wound was closed with Dermabond. Strict warnings given to return the emergency room for worsening headache, vomiting, changes in vision, any new pain or injury that needs evaluation, or any other concerns Procedures - Laceration/Wound Repair Upper Medial Head Wound's Depth, Shape: superficial Wound Explored: no foreign body removed Betadine Prep?: No Wound Repaired With: dermabond Layer Closure?: No Sterile Dressing Applied?: No Splint Applied?: No Sling Applied?: No Departure - Departure Clinical Impression: Scalp abrasion, non-infected Contusion of scalp Qualifiers: Encounter type: initial encounter Qualified Code(s): S00.03XA - Contusion of sc alp, initial encounter Disposition: Discharge to Home or Self Care Condition: Good Departure Forms: ED Discharge - Pt. Copy, Patient Portal Self Enrollment Instructions: DI for Closed Head Injury, Laceration Repair With Glue (DC) Referrals: Roberth Zaidi MD [Primary Care Provider] - 1-2 Weeks Home Medications: Ambulatory Orders Celecoxib [Celebrex] 200 mg PO BEDTIME 05/15/16 Cholecalciferol [Vitamin D3] 5,000 unit PO DAILY 05/15/16 Amlodipine Besylate 5 mg PO BEDTIME 12/19/16 Aspirin [Aspirin Adult Low Strengt] 81 mg PO DAILY 08/06/18 Calcium [Chelated Calcium] 400 mg PO BID 08/06/18 Eletriptan Hydrobromide 40 mg PO PRN 08/06/18 Losartan Potassium 100 mg PO DAILY 08/06/18 Tramadol HCl 50 mg PO Q8HR PRN #20 tab 08/06/18 Docusate Sodium [Stool Softener Extra Stre] 250 mg PO BEDTIME 11/01/18 Cyclobenzaprine HCl [Cyclobenzaprine Hydrochlo] 10 mg PO TID PRN #30 tab 11/07/18 Pantoprazole Sodium [Protonix] 20 mg PO DAILY #30 tab 06/06/19
== END 2019-09-16 11:38 | disposition home or self-care (01) ==
LOC: ER 10:50
DX: S00.01XA Abrasion of scalp, initial encounter (principal); S00.03XA Contusion of scalp, initial encounter; I25.2 Old myocardial infarction; Z79.82 Long term (current) use of aspirin; W22.8XXA Striking against or struck by other objects, initial encounter; Y92.9 Unspecified place or not applicable

== ENCOUNTER → 2020-03-09 | Outpatient (CLI) | payer MEDICARE ==
--- NOTE | 2020-03-09 08:45 | RAD ---
EXAM DESCRIPTION: Shoulder,Right x-ray 4 views CLINICAL HISTORY: 70 yearsFemale, SHOULDER PAIN COMPARISON: None. IMPRESSION: 4 views of the right shoulder demonstrate no evidence of acute fracture, dislocation, or destructive osseous lesion. Remote healed fracture with remodeling in the distal third of the right clavicle. Moderate hypertrophic acromioclavicular osteoarthritis. More mild glenohumeral degenerative changes. Hyperexpanded right lung with no confluent airspace consolidation. Electronically signed by: Alfonzo Nuñez MD 03/09/2020 8:44 AM CDT
== END ==
LOC: RAD 07:39
PROVIDERS: ATTEND Orthopaedic Surgery
DX: M19.011 Primary osteoarthritis, right shoulder (principal); J98.4 Other disorders of lung; Z87.81 Personal history of (healed) traumatic fracture